=== PATIENT | male | born 1990 | race Caucasian/White ===

== ENCOUNTER → 2020-04-24 14:00 | Outpatient (BNVA) | payer OTHER, SELFPAY | PROVIDERS: Visit Provider Physician Assistant Medical | DX: S39.012A Strain of muscle, fascia and tendon of lower back, initial encounter (principal); X50.1XXA Overexertion from prolonged static or awkward postures, initial encounter; M54.16 Radiculopathy, lumbar region | CPT/HCPCS: 99202 ==

== ENCOUNTER → 2020-04-28 10:24 | Outpatient (BNVA) | payer OTHER, SELFPAY | PROVIDERS: Visit Provider Physician Assistant Medical | DX: S39.012A Strain of muscle, fascia and tendon of lower back, initial encounter (principal); X50.1XXA Overexertion from prolonged static or awkward postures, initial encounter; M54.16 Radiculopathy, lumbar region | CPT/HCPCS: 99213 ==

== ENCOUNTER 2022-03-07 09:38 | Emergency (ER) | payer OTHER, SELFPAY ==
--- NOTE | ~2022-03-07 | XR_ITS ---
EXAMINATION: XR SHOULDER, RIGHT CLINICAL INFORMATION: Recent dislocation. COMPARISON: 07/10/2015 right shoulder radiographs. TECHNIQUE: Three views of the right shoulder. FINDINGS: The bones and soft tissues are normal. No fracture. Glenohumeral and acromioclavicular alignment is anatomic with normal joint space. No abnormal soft tissue calcifications. XR/XR shoulder RT min 2V IMPRESSION: Unremarkable right shoulder. No significant interval change.
[2022-03-07 10:29] VITALS: BP 115/78; PULSE 74; RESP 16; TEMP 36.6; O2SAT 99; BMI 25.0
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
== END 2022-03-07 12:25 | disposition home or self-care (01) ==
PROVIDERS: Emergency Provider Emergency Medicine; PCP Internal Medicine
DX: S43.401A Unspecified sprain of right shoulder joint, initial encounter (principal); X50.1XXA Overexertion from prolonged static or awkward postures, initial encounter; Y93.9 Activity, unspecified; Y92.9 Unspecified place or not applicable; Y99.9 Unspecified external cause status
CPT/HCPCS: 73030; 99282; 99283

== ENCOUNTER 2022-03-31 13:02 | Outpatient (REF) | payer OTHER, SELFPAY ==
--- NOTE | ~2022-03-31 | FL_ITS ---
EXAMINATION: XR ARTHROGRAM SHOULDER, RIGHT CLINICAL INFORMATION: Instability. Pre-MRI. COMPARISON: Right shoulder x-ray 03/07/2022. TECHNIQUE: Procedure and risks and benefits including bleeding, and infection were discussed with the patient and informed consent was obtained. The right shoulder was prepped and draped in the usual sterile fashion. The skin and soft tissues were anesthetized with 1% lidocaine plain. Using fluoroscopic guidance and a 22-gauge spinal needle, access to the shoulder joint was obtained, 1 to 2 mL of Omnipaque 300 was injected fluoroscopically confirming adequate placement in the joint space. Subsequently, a mixture of dilute gadolinium and saline was injected for MRI. FINDINGS: Images demonstrate adequate needle placement in the joint space. FLUOROSCOPY TIME: 0.2 minutes. DOSE AREA PRODUCT: 0.5 gaxiola per centimeter squared. One saved fluoroscopic image. FL/FL arthrogram shoulder RT IMPRESSION: Right shoulder pre-MRI arthrogram.
--- NOTE | ~2022-03-31 | MR_ITS ---
EXAMINATION: MR SHOULDER WITH CONTRAST, RIGHT CLINICAL INFORMATION: Right shoulder pain. Involuntary motion. Rule out labral tear. COMPARISON: Radiographs dated 03/07/2022. TECHNIQUE: MRI of the shoulder was performed following the intra-articular administration of a dilute gadolinium-containing solution (arthrogram) on a high-field scanner. Examination is somewhat limited by motion artifact. FINDINGS: ROTATOR CUFF: Minimal supraspinatus tendinosis. No rotator cuff tears. No muscle atrophy or fatty infiltration. BICEPS: Normal. CORACOACROMIAL ARCH: The undersurface of the acromion is curved with no subacromial spur. Mild acromioclavicular osteoarthritis. Abnormal morphology of the distal clavicle likely corresponds to chronic changes of an old healed fracture. LABRUM/CAPSULE: A tear of the glenoid labrum propagates from the anterosuperior 1 o'clock position through the anteroinferior 5 o'clock position and is associated with a Bankart fracture in this region. The anterior band of the inferior glenohumeral ligament is partially torn at the glenoid attachment. The middle glenohumeral ligament is markedly edematous and irregular, likely torn. Sprains are suspected at the coracohumeral and superior glenohumeral ligaments. GLENOHUMERAL JOINT/MARROW: There is a Bankart fracture at the anterior margin of the glenoid measuring 2.5 cm craniocaudal and 0.7 cm AP with minimal depression of the Bankart fragment (2 mm). Chondral fissuring is noted along the fracture line. Surrounding bone and soft tissues are edematous. There is a mild Hill-Sachs impaction deformity at the humeral head posteriorly over an area measuring 2.5 x 1.5 cm (craniocaudal by transverse) with a depth of depression of 3 mm and underlying marrow edema. MR/MR shoulder RT w con IMPRESSION: 1. Minimally displaced Bankart fracture at the anterior glenoid rim with surrounding edema and an associated tear of the anterior labrum from the 1 o'clock position through the 5 o'clock position. 2. Shallow, acute Hill-Sachs impaction deformity with a depth of 3 mm. 3. Partial tear of the anterior band of the inferior glenohumeral ligament at the glenoid attachment. Tear of the middle glenohumeral ligament. Sprains of the superior glenohumeral ligament and coracohumeral ligament.
== END 2022-03-31 13:03 | disposition home or self-care (01) ==
LOC: HO.XRAY 13:02
PROVIDERS: Visit Provider Physician Assistant
DX: M25.311 Other instability, right shoulder (principal)
CPT/HCPCS: 23350; 73040; 73222

== ENCOUNTER 2022-04-07 07:25 | Day surgery (SDC) | payer OTHER, SELFPAY ==
[2022-04-02 09:47] VITALS: BMI 25.0
--- NOTE | 2022-04-06 09:05 | HO.ANESPROP2 ---
Documented by User: Yvette Wallace NP 04/06/22 09:05 HPI - Anesthesia Eval Consult details Narrative: 31yo M for Right Shoulder Arthroscopy with capsular plication,poss bankhart PMFSH Active Problems Active Problems: All Active Problems (Updated 03/22/22 @ 10:08 by Selma Dial PA-C) Instability of right shoulder joint (Acute) Past Medical History Medical History (Updated 03/22/22 @ 10:08 by Selma Dial PA-C) History of HPV infection Hx of strain of rotator cuff Family History Family History Other No significant family history Surgical History Surgical History (Updated 04/07/22 @ 07:49 by Nanda Schmidt) History of surgery Hx of shoulder surgery Social History Social History (Updated 03/22/22 @ 09:46 by DAIN Reyes) Alcohol intake: current Alcohol intake frequency: a few times a month Patient Tobacco Use Status: Former Tobacco user Quit Date: 2021 Tobacco use type: Cigarette Cigarettes Per Day: 10 Years Smoked: 10 Current occupational status: employed 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 Meds Allergies Allergy/AdvReac Type Severity Reaction Status Date / Time No Known Allergies Allergy Verified 04/07/22 07:47 [No Known Allergies*] Exam Exam Date and Time: April 06, [id number] Height,Weight and Vital Signs: Height 6 ft 1 in Weight 86.183 kg Assessment and Plan Assessment Anesthesia Assessment: Chart Reviewed Documented by User: Leoncio Stephens MD 04/07/22 16:54 PMFSH Past Medical History Medical History (Updated 03/22/22 @ 10:08 by Selma Dial PA-C) History of HPV infection Hx of strain of rotator cuff Family History Family History Other No significant family history Family history of problems with anesthesia: No Surgical History Surgical History (Updated 04/07/22 @ 07:49 by Nanda Schmidt) History of surgery Hx of shoulder surgery History of Problems with Anesthesia: No Social History Social History (Updated 03/22/22 @ 09:46 by DAIN Reyes) Alcohol intake: current Alcohol intake frequency: a few times a month Patient Tobacco Use Status: Former Tobacco user Quit Date: 2021 Tobacco use type: Cigarette Cigarettes Per Day: 10 Years Smoked: 10 Current occupational status: employed 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 Meds Allergies Allergy/AdvReac Type Severity Reaction Status Date / Time No Known Allergies Allergy Verified 04/07/22 07:47 [No Known Allergies*] Exam Airway Mallampati Class: II TM Dist: >3cm Neck ROM: Full Loose/Missing/Broken Teeth: Yes ([place] , fillings ) Heart: S1,S2 Lungs: b/l breath sounds Assessment and Plan Assessment Anesthesia Assessment: Anesthesia Plan Discussed Final Anesthetic Review Family History of Problems with Anesthesia: No History of Problems with Anesthesia: No NPO: Yes ASA Class: II Final Preanesthetic Review: Meds/Allgs Chart Reviewed, Consent Obtained/Reviewed and Anes Risks/Benef Reviewed Patient Risk: Intermediate Procedure Risk: Intermediate Anesthetic Plan Anesthetic Plan: GA and Regional Block Disposition: Standard PACU
[2022-04-07] VITALS (8 sets, daily range): BP systolic 113–130; BP diastolic 63–77; PULSE 50–74; RESP 11–16; TEMP 36.2–36.4; O2SAT 95–100; BMI 21.1
[2022-04-07] MEDS: Lactated Ringers 1,000 ML 100 ML IVCONT (08:13)
--- NOTE | 2022-04-07 09:35 | MHC.SHP ---
Pre-Procedural Eval Section A Date of Service: 04/07/22 The patient is an INPATIENT: No Changes since office visit: Yes Patient answered all questions; No Cold of Flu in the past 2 weeks, No New Medical Problems and No Changes in Medication The History & Physical has been completed within 30 days and I have reviewed it.: Yes Section B Chief Complaint: Other instability, right shoulder Allergies: Allergies Allergy/AdvReac Type Severity Reaction Status Date / Time No Known Allergies Allergy Verified 04/07/22 07:47 [No Known Allergies*] Plan I have reviewed the history and physical and performed a pertinent physical examination on my patient. No changes have occurred unless specified.
--- NOTE | 2022-04-07 11:52 | PM.OP ---
Brief Operative Note Date of Service: 04/07/22 Pre-op diagnosis: right shoulder instability Post-op diagnosis: same Procedure: Right shoulder capsular plication with bankhart repair Implants: Carlton and nephew micro-raptor x4 Surgeon: Fish Lynn MD Anesthesia: GETA and local Was an Communications Representative used for this Procedure?: Yes Communications Representative: Adelina Flores Estimated blood loss (mL): 1 IV fluids (mL): 1,000 Pathology: none sent Condition: stable Disposition: PACU
--- NOTE | 2022-04-07 11:56 | P.OP_ITS ---
Operative Note Operative Note Date of Service: 04/07/22 Narrative: Date of Service: 04/07/22 Pre-op diagnosis: right shoulder instability Post-op diagnosis: same Procedure: Right shoulder capsular plication with bankhart repair Implants: Carlton and nephew micro-raptor x4 Surgeon: Fish Lynn MD Anesthesia: GETA and local Was an Analytical Data Miner used for this Procedure?: Yes Analytical Data Miner: Adelina Flores Estimated blood loss (mL): 1 IV fluids (mL): 1,000 Pathology: none sent Condition: stable Disposition: PACU Procedure in detail: Patient was brought to the operating room and placed the the beach chair position. All bony prominences were well padded and the limb was prepped and draped in standard sterile fashion. A time out was called to identify proper site, proper procedure and proper surgeon. IV antibiotics per weight were administered. I began by making a posterolateral stab incision with a 15 blade. A blunt trochar was placed into the glenohumeral joint and I insufflated the joint with saline and a 30 degree arthroscope was placed. I established an outside- in anterior portal just distal to the biceps tendon. I then began my inspection of the glenohumeral joint. There was a moderate chronic bony bankhat that was healed and with a large stepoff. There was loss of approximately 10-15% of the anterior glenoid. This was not repairable and was chronic. There was a + drive-through sign and cartilage changes of the pratibha-inferior glenoid. There was evidence of prior labral/bankhart repair. I established a second anterioinferior portal and debrided the prior suture and diminutive anterior labral and capsular tissue.I debrided the labrum and removed the prior suture. I then debrided the anterior glenoid neck. Using a Acupass I was able to pass 2 sutures through the capsular tissue at the 5-6 0:clock position and plicate this to the labrum at approximately 5 0:clock. There was no remaining labrum but so I was able to create a bumper of soft tissue at the anterior glenoid using the Acupass. 3 additional suture anchors between 3 and 5 0:clock. I did have an excellent bumper and there was no longer a drive through sign. The subscapularis was intact and there was no under-surface RTC tearing. There was mild fraying of the biceps with associated mild degenerative tearing of the labrum superiorly. I debrided this with the cautery wand. I was satisfied with the plication and the labral repair. There was a shallow Hill-sachs. I then removed all instrumentation and took my final pictures. Portals were closed with nylon. Patient was placed in an abduction sling, extubated and brought to the recovery room in stable condition. There were no known complications.
== END 2022-04-07 14:25 | disposition home or self-care (01) ==
PROVIDERS: PCP Internal Medicine; Visit Provider Orthopaedic Surgery
PROC: (CPT 29805; principal; 2022-04-07 09:40)
DX: M25.311 Other instability, right shoulder (principal); Z87.828 Personal history of other (healed) physical injury and trauma
CPT/HCPCS: 29806; J0171; J0461; J0690; J1100; J1170; J2250; J2405; J2795; J3010

== ENCOUNTER 2022-07-08 10:00 | Outpatient (RCR) | payer OTHER, SELFPAY ==
--- NOTE | 2022-08-30 09:44 | MHC.PT.DC ---
[facility] [place] Office [place] [facility] [place] [facility] [address] Tangela Talbot [address] [phone] F: [phone] F: [phone] F: [phone] F: [phone] Physical Therapy Discharge Report Diagnosis: S/P CAPSULAR PLICATION AND BANKART REPAIR Date of Surgery: 04/07/22 Date of Evaluation: 04/14/22 Date of Discharge: 07/31/22 Treatments to Date: 21 Cancellations to Date: 0 No Shows to Date: 0 Discharge Status: Discharge Summary: Sasha had been progressing well in PT. Shoulder ROM: flexion 165, IR to T12, ER 70. Strength was WNLs. He did not schedule follow up after last attended visit. He had been returning to work. As we have not heard from him in over 30 days we will DC his chart at this time. Electronically signed by: Mitzy Baumann PT DPT Please sign and return to therapist. Thank you for your referral.
== END 2022-08-30 09:44 | disposition home or self-care (01) ==
LOC: HO.PT 10:00
PROVIDERS: Visit Provider Orthopaedic Surgery
DX: M25.311 Other instability, right shoulder (principal)
CPT/HCPCS: 97110; 97140; 97161; 97530

== ENCOUNTER → 2022-07-12 14:46 | Outpatient (BNVA) | payer OTHER, SELFPAY | PROVIDERS: PCP Internal Medicine; Visit Provider Physician Assistant | DX: Z13.89 Encounter for screening for other disorder (principal) ==

== ENCOUNTER 2023-04-14 15:07 | Outpatient (AMB) | payer OTHER, SELFPAY ==
[2023-04-14 15:10] VITALS: BP 122/78; PULSE 78; TEMP 36.6; O2SAT 98
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
== END 2023-04-14 16:12 | disposition home or self-care (01) ==
PROVIDERS: PCP Internal Medicine; Visit Provider Physician Assistant
DX: S99.191A Other physeal fracture of right metatarsal, initial encounter for closed fracture (principal)
CPT/HCPCS: 99214

== ENCOUNTER 2023-04-14 15:28 | Outpatient (REF) | payer OTHER, SELFPAY ==
--- NOTE | ~2023-04-14 | XR_ITS ---
EXAMINATION: Right foot. Right hand. CLINICAL INDICATIONS: Pain. TECHNIQUE: 3 views right hand and 3 views right foot. FINDINGS: RIGHT HAND: There is no visible acute fracture, dislocation or subluxation seen. The joint spaces are maintained normal. No bony erosive changes. The soft tissues are normal. RIGHT FOOT: There is a nondisplaced fracture base of fifth metatarsal. There is associated mild soft tissue swelling. No additional fracture seen. The ankle mortise and subtalar joints are normal. XR/XR foot RT min 3V IMPRESSION: Nondisplaced fracture base of fifth metatarsal. Mild adjacent soft tissue swelling. Unremarkable right hand exam.
--- NOTE | ~2023-04-14 | XR_ITS ---
EXAMINATION: Right foot. Right hand. CLINICAL INDICATIONS: Pain. TECHNIQUE: 3 views right hand and 3 views right foot. FINDINGS: RIGHT HAND: There is no visible acute fracture, dislocation or subluxation seen. The joint spaces are maintained normal. No bony erosive changes. The soft tissues are normal. RIGHT FOOT: There is a nondisplaced fracture base of fifth metatarsal. There is associated mild soft tissue swelling. No additional fracture seen. The ankle mortise and subtalar joints are normal. XR/XR hand RT min 3V IMPRESSION: Nondisplaced fracture base of fifth metatarsal. Mild adjacent soft tissue swelling. Unremarkable right hand exam.
== END 2023-04-14 15:29 | disposition home or self-care (01) ==
LOC: HO.HMGCX 15:28
PROVIDERS: PCP Internal Medicine; Visit Provider Physician Assistant
DX: M79.641 Pain in right hand (principal); M79.671 Pain in right foot
CPT/HCPCS: 73130; 73630

== ENCOUNTER 2023-04-21 09:49 | Outpatient (AMB) | payer OTHER, SELFPAY ==
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
[2023-04-21 10:05] VITALS: BMI 21.1
== END 2023-04-21 11:09 | disposition home or self-care (01) ==
PROVIDERS: PCP Internal Medicine; Visit Provider Physician Assistant
DX: S99.191A Other physeal fracture of right metatarsal, initial encounter for closed fracture (principal)
CPT/HCPCS: 28470; 99213

== ENCOUNTER 2023-04-21 09:49 | Outpatient (REF) | payer OTHER, SELFPAY ==
--- NOTE | ~2023-04-21 | XR_ITS ---
EXAMINATION: XR FOOT, RIGHT CLINICAL INFORMATION: Right foot pain displaced fracture fifth metatarsal bone COMPARISON: 04/14/2023 TECHNIQUE: AP, lateral, and oblique views of the right foot. FINDINGS: Redemonstration of nondisplaced fracture at the base of the fifth metatarsal. Fracture line is still visible, but less conspicuous, suggesting some interval healing. Joint spaces are preserved. XR/XR foot RT min 3V IMPRESSION: Healing nondisplaced fracture of the fifth metatarsal.
== END 2023-04-21 09:50 | disposition home or self-care (01) ==
LOC: HO.HOSX 09:49
PROVIDERS: PCP Internal Medicine; Visit Provider Physician Assistant
DX: S99.191A Other physeal fracture of right metatarsal, initial encounter for closed fracture (principal)
CPT/HCPCS: 28470; 73630

== ENCOUNTER 2023-05-09 09:29 | Outpatient (AMB) | payer OTHER, SELFPAY ==
[2023-05-09 09:46] VITALS: BMI 21.1
--- NOTE | 2023-05-09 09:46 | MHC.OFFVIS ---
Intake Vital Signs 05/09/23 09:46 Height 6 ft 1 in Weight 160 lb BMI 21.1 Intake Visit Reasons: ov- Rt prasad fx w Intake Note: Sasha coreas 32 year old male presents today for a cast change s/p fifth metatarsal bone fracture, DOI 04/14/23. Patient reports his swelling has improved and cast is loose. Allergies No Known Allergies [No Known Allergies*] Allergy (Verified 05/09/23 09:48) HPI HPI Comments History of Present Illness Details Patient returns today for cast change- states the bottom is falling apart. PFSH Medical History History of HPV infection Hx of strain of rotator cuff Surgical History Hx of shoulder surgery History of surgery Family History Other No significant family history Social History Alcohol intake: current Alcohol intake frequency: a few times a month Patient Tobacco Use Status: Former Tobacco user Quit Date: 2021 Tobacco use type: Cigarette Cigarettes Per Day: 10 Years Smoked: 10 Current occupational status: employed Current occupation: water dept/ rt hand Review of Systems Const All systems reviewed & are unremarkable except as noted in HPI and below Physical Exam Vital Signs: BMI result Body Mass Index 21.1 Office Procedures Casting/Splints 66207-[employer] Leg Cast Application Procedure code (CPT) selection complete Assessment & Plan Assessment & Plan (1) Prasad fracture: Code(s): S99.199A - Other physeal fracture of unspecified metatarsal, initial encounter for closed fracture Qualifiers: Encounter type: initial encounter Fracture type: closed Laterality: right Qualified Code(s): S99.191A - Other physeal fracture of right metatarsal, initial encounter for closed fracture Plan: patient was palced in a short leg cast, nwb. He will f/u as planned Coding Level of Care Code Global (40698) Diagnoses Closed fracture of base of fifth metatarsal bone of right foot at metaphyseal-diaphyseal junction, initial encounter S99.191A Encounter type: initial encounter Fracture type: closed Laterality: right CPT Codes Casting - CPT: 84232-[employer] Leg Cast Application ([id number])
== END 2023-05-09 10:28 | disposition home or self-care (01) ==
PROVIDERS: PCP Internal Medicine; Visit Provider Physician Assistant
DX: S99.191A Other physeal fracture of right metatarsal, initial encounter for closed fracture (principal)
CPT/HCPCS: 29405; 99024

== ENCOUNTER → 2023-05-09 09:29 | Outpatient (BNVA) | payer OTHER, SELFPAY | PROVIDERS: PCP Internal Medicine; Visit Provider Physician Assistant | DX: S99.191A Other physeal fracture of right metatarsal, initial encounter for closed fracture (principal); X58.XXXA Exposure to other specified factors, initial encounter; Y93.9 Activity, unspecified; Y92.9 Unspecified place or not applicable; Y99.9 Unspecified external cause status | CPT/HCPCS: 29405 ==

== ENCOUNTER 2023-06-02 12:19 | Outpatient (REF) | payer OTHER, SELFPAY ==
--- NOTE | ~2023-06-02 | XR_ITS ---
EXAMINATION: XR FOOT, RIGHT CLINICAL INFORMATION: Follow-up fifth metatarsal fracture. COMPARISON: Radiograph right foot 04/21/2023. TECHNIQUE: AP, lateral, and oblique views of the right foot. FINDINGS: Again noted nondisplaced fracture of the base of the fifth metatarsal with mild osseous bridging along the medial aspect of the fracture where there is a less distinct fracture line compared to 04/21/2023. No significant callus formation. No interval injuries. No significant soft tissue abnormality. XR/XR foot RT min 3V IMPRESSION: Healing nondisplaced fracture of the base of the fifth metatarsal.
== END 2023-06-02 12:20 | disposition home or self-care (01) ==
LOC: HO.HOSX 12:19
PROVIDERS: Visit Provider Physician Assistant
DX: S99.191D Other physeal fracture of right metatarsal, subsequent encounter for fracture with routine healing (principal)
CPT/HCPCS: 73630

== ENCOUNTER 2023-06-02 14:13 | Outpatient (AMB) | payer OTHER, SELFPAY ==
--- NOTE | 2023-06-02 14:32 | A.OFFVIS_ITS ---
Intake Vital Signs 06/02/23 14:38 Height 6 ft 1 in Weight 160 lb BMI 21.1 Intake Visit Reasons: ov- Rt prasad fx w xrays Intake Note: Sasha coreas 32 year old male presents today for a cast change s/p fifth metatarsal bone fracture, DOI 04/14/23. Cast off and xrays updated. Patient reports he is doing well, denies any pain. States a little discomfort from cast. Allergies No Known Allergies [No Known Allergies*] Allergy (Verified 06/02/23 14:38) HPI ov- Rt prasad fx w xrays HPI Details 32-year-old male who returns to the [facility] today for a follow-up of right prasad fracture, 04/14/23. He states he has no pain but he does c/o mild discomfort from his cast. He is doing well overall. [facility] Medical History History of HPV infection Hx of strain of rotator cuff Surgical History Hx of shoulder surgery History of surgery Family History Other No significant family history Social History Alcohol intake: current Alcohol intake frequency: a few times a month Patient Tobacco Use Status: Former Tobacco user Quit Date: 2021 Tobacco use type: Cigarette Cigarettes Per Day: 10 Years Smoked: 10 Current occupational status: employed Current occupation: water dept/ rt hand Review of Systems Const All systems reviewed & are unremarkable except as noted in HPI and below Physical Exam Vital Signs: BMI result Body Mass Index 21.1 Extrem Other: Right foot: Skin intact. There is mild tenderness at the base of the 5th metatarsal. Sensation intact. EHL intact. No pain along the mediolateral malleolus. Neurovascularly intact. Results Reviewed Results Reviewed: Xrays were obtained in the office today and personally reviewed by me of the right foot show non displaced prasad fracture with interval healing Assessment & Plan Assessment & Plan (1) Prasad fracture: Code(s): S99.199A - Other physeal fracture of unspecified metatarsal, initial encounter for closed fracture Qualifiers: Encounter type: subsequent encounter Fracture type: closed Laterality: right Fracture healing: with routine healing Qualified Code(s): S99.191D - Other physeal fracture of right metatarsal, subsequent encounter for fracture with routine healing Plan I recommend he transitioned to a boot weight bearing as tolerated. I did explain that fracture is not completely healed however we are seeing evidence of healing on x-rays. He chose not to take a new boot from our office today as he does still have one form ED and states that when he gets home, he will put that one on. He will be weight bearing as tolerated and he can remove the boot for hygiene. I would like to see him back in 6 weeks with new x-rays and he will remain out of work till follow-up. Orders: Orders XR foot RT min 3V 06/02/23 S92.351A - Displaced fracture of fifth metatarsal bone, right foot, initial encounter for closed fracture Patient Instructions: Scribed for Selma Dial PA-C, by Evens Abbott medical appointment scheduler, on 06/02/2023 at 2:15 PM EST. I, Selma Dial PA-C, have personally reviewed and agree with the information entered by the scribe. Coding Level of Care Code Global (05718) Diagnoses Closed fracture of base of fifth metatarsal bone of right foot at metaphyseal- diaphyseal junction with routine healing, subsequent encounter S99.191D Encounter type: subsequent encounter Fracture type: closed Laterality: right Fracture healing: with routine healing
[2023-06-02 14:38] VITALS: BMI 21.1
== END 2023-06-02 15:53 | disposition home or self-care (01) ==
PROVIDERS: PCP Internal Medicine; Visit Provider Physician Assistant
DX: S99.191D Other physeal fracture of right metatarsal, subsequent encounter for fracture with routine healing (principal)
CPT/HCPCS: 99024

== ENCOUNTER 2023-06-28 11:42 | Outpatient (AMB) | payer OTHER, SELFPAY ==
[2023-06-28 11:47] VITALS: BP 118/70; PULSE 83; TEMP 36.4; O2SAT 97; BMI 21.1
--- NOTE | 2023-06-28 11:47 | MHC.OFFWIV ---
Intake Vital Signs 06/28/23 11:47 Height 6 ft 1 in Weight 160 lb BMI 21.1 BP 118/70 Blood Pressure Location Rt brachial Position Sitting Pulse 83 Pulse Source Pulse Oximeter Temp 97.6 F Temp Source Temporal Artery Scan Pulse Oximetry (%) 97 Oxygen Delivery Method Room Air Intake Visit Reasons: EP COVID + 06/24 Sore throat [phone] Intake Note: pt is here for c/o sore throat, covid postive tuesday, and girlfriend is strep positive Patient Tobacco Use Status: Former Tobacco user Quit Date: 2021 Allergies No Known Allergies [No Known Allergies*] Allergy (Verified 06/28/23 12:34) Medication List - Last Reconciled 06/28/23 by Ottoniel Carvalho MD No Known Home Meds Do you need a note to return to daycare/school/sports/work: Yes HPI EP COVID + 06/24 Sore throat [phone] HPI Details 32-year-old male presents to the office for a sick visit. Patient tested positive for COVID on Tuesday last. He is feeling better but developed a sore throat yesterday. His girlfriend was diagnosed with strep and he would like to be checked for the same. On a different note, patient has history of tinea versicolor and takes Selenium sulfide. He would like a script for the same. [facility] Medical History History of HPV infection Hx of strain of rotator cuff Surgical History Hx of shoulder surgery History of surgery Family History Other No significant family history Social History Alcohol intake: current Alcohol intake frequency: a few times a month Patient Tobacco Use Status: Former Tobacco user Quit Date: 2021 Tobacco use type: Cigarette Cigarettes Per Day: 10 Years Smoked: 10 Current occupational status: employed Current occupation: water dept/ rt hand Physical Exam Vital Signs: Last Vital Signs Temp 97.6 F 06/28/23 11:47 Pulse 83 06/28/23 11:47 BP 118/70 06/28/23 11:47 Pulse Ox 97 06/28/23 11:47 Oxygen Delivery Method Room Air 06/28/23 11:47 BMI result Body Mass Index 21.1 Const General: cooperative and healthy appearing Nutritional Appearance: well nourished Orientation/consciousness: patient oriented x3 Limitations: no limitations HEENT Head: Yes normal to inspection Eyes General: appearance normal, both eyes and all related structures Neck Neck: Yes normal visual inspection Chest Chest palpation & inspection: normal palpation of entire chest wall Resp Effort & Inspection: normal respiratory effort Skin Other: Macular hypopigmented areas over the neck consistent with tinea versicolor. Neuro General: patient oriented x3 Results AMB Rapid Strep AMB Rapid Strep Negative Last Edit by Krishan Parisi CMA on 06/28/23 12:03 Results Reviewed Results Reviewed: Laboratory Last Values Strep Scn Rapid Clinic Negative 06/28/23 12:03 Assessment & Plan Assessment & Plan (1) Upper respiratory tract infection: Code(s): J06.9 - Acute upper respiratory infection, unspecified Plan: No antibiotics needed. Strep test was negative. Reassurance. (2) Rash: Code(s): R21 - Rash and other nonspecific skin eruption Plan: Prescription of selenium sulfide called in. Orders: Orders AMB Rapid Strep Screen Today Z13.9 - Encounter for screening, unspecified Coding Level of Care Code Est Pt Level 3 (81021) Diagnoses Upper respiratory tract infection J06.9 Rash R21
== END 2023-06-28 12:55 | disposition home or self-care (01) ==
PROVIDERS: PCP Internal Medicine; Visit Provider Internal Medicine
DX: J06.9 Acute upper respiratory infection, unspecified (principal); R21 Rash and other nonspecific skin eruption; J02.9 Acute pharyngitis, unspecified
CPT/HCPCS: 87880; 99213

== ENCOUNTER 2023-07-14 12:47 | Outpatient (REF) | payer OTHER, SELFPAY ==
--- NOTE | ~2023-07-14 | XR_ITS ---
EXAMINATION: XR FOOT, RIGHT CLINICAL INFORMATION: Displaced fracture of 5th metatarsal. COMPARISON: 06/02/2023 TECHNIQUE: AP, lateral, and oblique views of the right foot. FINDINGS: Again seen is the fracture at the base of the 5th metatarsal. Compared to 06/02/2023 study no significant interval change is seen with no evidence of increased fracture fragment healing. No new fractures are seen. XR/XR foot RT min 3V IMPRESSION: Unchanged appearance of fracture at the base of the 5th metatarsal.
== END 2023-07-14 12:48 | disposition home or self-care (01) ==
LOC: HO.HOSX 12:47
PROVIDERS: Visit Provider Physician Assistant
DX: S92.351D Displaced fracture of fifth metatarsal bone, right foot, subsequent encounter for fracture with routine healing (principal); S99.191D Other physeal fracture of right metatarsal, subsequent encounter for fracture with routine healing; X58.XXXD Exposure to other specified factors, subsequent encounter
CPT/HCPCS: 73630

== ENCOUNTER 2023-07-14 14:48 | Outpatient (AMB) | payer OTHER, SELFPAY ==
--- NOTE | 2023-07-14 15:03 | A.OFFVIS_ITS ---
Intake Vital Signs 07/14/23 15:08 Height 6 ft 1 in Weight 160 lb BMI 21.1 Intake Visit Reasons: OV-Rt 5th metatarsal fx w xrays Intake Note: Sasha coreas 32 year old male presents today for a cast change s/p fifth metatarsal bone fracture, DOI 04/14/23. Xrays updated while in office. Patient reports he is doing well, states a little discomfort by the end of the day. Allergies No Known Allergies [No Known Allergies*] Allergy (Verified 07/14/23 15:09) HPI OV-Rt 5th metatarsal fx w xrays HPI Details 32-year-old male who returns to the [facility] today for a follow-up of r ight 5th metatarsal fracture, 04/14/23. He states he experiences mild discomfort in his right small toes by the end of the day but is doing well overall. He has no other concerns today. [facility] Medical History History of HPV infection Hx of strain of rotator cuff Surgical History Hx of shoulder surgery History of surgery Family History Other No significant family history Social History Alcohol intake: current Alcohol intake frequency: a few times a month Patient Tobacco Use Status: Former Tobacco user Quit Date: 2021 Tobacco use type: Cigarette Cigarettes Per Day: 10 Years Smoked: 10 Current occupational status: employed Current occupation: water dept/ rt hand Review of Systems Const All systems reviewed & are unremarkable except as noted in HPI and below Physical Exam Vital Signs: BMI result Body Mass Index 21.1 Extrem Other: Right foot Normal to inspection. No swelling or ecchymosis. No tenderness over the base of the metatarsal. Full ROM without pain. He has mild weakness with inversion and eversion against resistance. Results Reviewed Results Reviewed: Xrays were obtained in the office today and personally reviewed by me of the right foot show non displaced prasad fracture with interval healing Assessment & Plan Assessment & Plan (1) Prasad fracture: Code(s): S99.199A - Other physeal fracture of unspecified metatarsal, initial encounter for closed fracture Qualifiers: Encounter type: subsequent encounter Fracture healing: with routine healing Fracture type: closed Laterality: right Qualified Code(s): S99.191D - Other physeal fracture of right metatarsal, subsequent encounter for fracture with routine healing Plan He will transition to a regular street shoe. He will begin a course of physical therapy to work on strengthening and proprioceptive training. He will return to work on July 19 and gradually increase activities as tolerated using caution with any type of impact activities. He will follow-up as needed unless symptoms arise. Orders: Orders XR foot RT min 3V Today S92.351A - Displaced fracture of fifth metatarsal bone, right foot, initial encounter for closed fracture PT Evaluation and Treatment Today S99.199A - Other physeal fracture of unspecified metatarsal, initial encounter for closed fracture Patient Instructions: Scribed for Selma Dial PA-C, by Evens Abbott medical aide, on 07/14/2023 at 3:00 PM EST. I, Selma Dial PA-C, have personally reviewed and agree with the information entered by the scribe. Coding Level of Care Code Global (01999) Diagnoses Closed fracture of base of fifth metatarsal bone of right foot at metaphyseal- diaphyseal junction with routine healing, subsequent encounter S99.191D Encounter type: subsequent encounter Fracture healing: with routine healing Fracture type: closed Laterality: right
[2023-07-14 15:08] VITALS: BMI 21.1
== END 2023-07-14 15:31 | disposition home or self-care (01) ==
PROVIDERS: PCP Internal Medicine; Visit Provider Physician Assistant
DX: S99.191D Other physeal fracture of right metatarsal, subsequent encounter for fracture with routine healing (principal)
CPT/HCPCS: 99024

== ENCOUNTER 2023-08-02 15:56 | Outpatient (RCR) | payer OTHER, SELFPAY ==
--- NOTE | 2023-08-02 18:11 | MHC.PT.EP ---
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 Patient impairments include limited ROM, weakness, impaired balance/proprioception. Patient current functional limitations are getting out of bed, walking barefoot, walking outdoors. Patient will benefit from skilled PT to address aforementioned impairments and functional limitations to meet established goals. Frequency and Duration: The patient will be seen 1x/week for 4 weeks Short Term Goals: 2 weeks Patient demonstrates consistency and independence with HEP to self manage symptoms. File Clerk Data Entry Goals: 4 weeks Patient presents with increased R ankle DF 0 degrees to restore normalized gait pattern. Patient presents with increased R ankle inv/ev strength 5/5 to be able to ambulate on uneven surfaces with stability. Treatment Plan: Modalities to reduce pain, spasms and effusion. Manual therapy to restore motion and function. Therapeutic exercise to improve strength and flexibility. Neuromuscular re-education for posture and balance. Therapeutic activities to return to functional activities of daily living. Electronically signed by: Yonathan House, PT, DPT Please sign and return to therapist. Thank you for your referral.
--- NOTE | 2023-10-03 10:56 | MHC.PT.DC ---
[facility] [employer] Office [place] Office [place] Office [address] Tangela Tal[address] [phone] F: [phone] F: [phone] F: [phone] F: [phone] Physical Therapy Discharge Report Diagnosis: Fifth metatarsal closed fx (DOI: 04/14/23) Date of Surgery: Date of Evaluation: 08/02/23 Date of Discharge: 10/03/23 Treatments to Date: 1 Cancellations to Date: 1 No Shows to Date: Discharge Status: Visit Non-compliance Discharge Summary: Sasha was only see for the initial PT evaluation and did not show to any FUP sessions. I am unable to determine effectiveness of PT interventions on patient condition due to this. He is discharged from PT at this time. Electronically signed by: Yonathan House, PT, DPT Please sign and return to therapist. Thank you for your referral.
== END 2023-10-03 10:56 | disposition home or self-care (01) ==
LOC: HO.PT 15:56
PROVIDERS: PCP Internal Medicine; Visit Provider Physician Assistant
DX: S99.191D Other physeal fracture of right metatarsal, subsequent encounter for fracture with routine healing (principal)
CPT/HCPCS: 97110; 97112; 97161

== ENCOUNTER 2024-11-28 15:40 | Outpatient (AMB) | payer OTHER, SELFPAY ==
[2024-11-28 15:47] VITALS: BP 122/78; PULSE 78; TEMP 36.6; O2SAT 97
--- NOTE | 2024-11-28 15:47 | AM.OFFWIN_ITS ---
Intake Vital Signs 11/28/24 15:47 Height 6 ft 1 in BMI Reason not done Patient refused/unable BP 122/78 Blood Pressure Location Lt brachial Position Sitting Pulse 78 Pulse Source Pulse Oximeter Temp 97.9 F Temp Source Oral Pulse Oximetry (%) 97 Intake Visit Reasons: EP flu like symptoms all week, lump on neck Patient Tobacco Use Status: Former Tobacco user Allergies No Known Allergies [No Known Allergies*] Allergy (Verified 11/28/24 15:48) Do you need a note to return to daycare/school/sports/work: Yes HPI HPI Comments History of Present Illness Details 34 yo male with a history of Schmidt adam ure who presents today for cold symptoms. He states that he has been having a cold for the past week and a half. He states that he started with body aches, chills, LANGLEY, sore throat and a cough. He states that he had a lot of phlegm. He states that he has been eating and drinking. He states that he has been feeling better. He noticed 2 lumps on the left later neck and it freaked him out . He has some ear pain and a sore throat. He has not taken anything for the symptoms. He is a smoker. He was with a friend last week who had the flu. He also wants a medication refill. [facility] Medical History History of HPV infection Hx of strain of rotator cuff Surgical History Hx of shoulder surgery History of surgery Family History Other No significant family history Social History Alcohol intake: current Alcohol intake frequency: a few times a month Patient Tobacco Use Status: Former Tobacco user Tobacco use type: Cigarette Cigarettes Per Day: 10 Years Smoked: 10 Current occupational status: employed Current occupation: water dept/ rt hand Review of Systems Const Denies headache(s) ENT Denies headache(s), Reports nasal congestion, Reports nasal discharge, Denies sinus pain, Denies sinus pressure and Reports sore throat Card Denies chest pain and Denies dyspnea Resp Reports chest congestion, Reports cough, Reports excessive phlegm production, Denies dyspnea and Denies wheezing GI Denies abdominal pain, Denies diarrhea and Denies vomiting Musc Reports myalgias Neuro Denies headache(s) Jose J/Lymph Reports lymphadenopathy Aller/Immun Denies seasonal rhinorrhea and Denies wheezing Physical Exam Vital Signs: Last Vital Signs Temp 97.9 F 11/28/24 15:47 Pulse 78 11/28/24 15:47 BP 122/78 11/28/24 15:47 Pulse Ox 97 11/28/24 15:47 Const General: no acute distress, well developed, alert and awake HEENT Head: Yes normocephalic Ears: TM's normal bilaterally General nose exam: Normal nares present and No nasal discharge present Face and sinus: Yes sinuses nontender Throat: Yes posterior oropharynx normal, Yes tonsils normal and Yes uvula midline Neck Neck: Yes lymphadenopathy (left posterior lymph nodes noted ) and Yes torticollis Resp Auscultation: clear to auscultation bilaterally Cardio Rate: regular rate Rhythm: regular rhythm Heart sounds: S1 normal heart sound present and S2 normal heart sound present Assessment & Plan Assessment & Plan (1) Flu-like symptoms: Code(s): R68.89 - Other general symptoms and signs Plan: Most likely URI vs flu vs covid vs viral illness plan- -rest and drink lots of fluids -Tylenol or Motrin as needed -diet as tolerated -z-chinedu as directed -will refill his medication -f/u with PCP Medications: New azithromycin For 250 mg dose pack: take 500 mg today (day 1), then 250 mg for 4 days (days 2-5) PO 6 tabs 0RF Refilled selenium sulfide 2.5% 1 appl topical 2XW 2 weeks 120 mL 1RF Coding Level of Care Code Est Pt Level 3 (36027) Diagnoses Flu-like symptoms R68.89
== END 2024-11-28 16:09 | disposition home or self-care (01) ==
PROVIDERS: PCP Internal Medicine; Visit Provider Physician Assistant Medical
DX: R68.89 Other general symptoms and signs (principal)

== ENCOUNTER → 2024-11-28 15:40 | Outpatient (BNVA) | payer OTHER, SELFPAY | PROVIDERS: PCP Internal Medicine; Visit Provider Physician Assistant Medical | DX: Z13.89 Encounter for screening for other disorder (principal) ==

== ENCOUNTER 2025-04-11 08:12 | Outpatient (REF) | payer OTHER, SELFPAY ==
--- NOTE | ~2025-04-11 | XR_ITS ---
EXAMINATION: XR ANKLE 3 OR MORE VIEWS RIGHT HISTORY: M25.571 - Pain in right ankle and joints of right foot COMPARISON: There are no prior studies available for comparison. FINDINGS: Three views of the right ankle are submitted. Osseous mineralization is normal. There is a minimally displaced fracture of the medial malleolus. There is also an obliquely oriented nondisplaced fracture through the talus, best seen on the oblique view. There is no dislocation. The joint spaces are preserved. There is diffuse soft tissue swelling. XR/XR ankle RT min 3V IMPRESSION: 1. Minimally displaced fracture of the medial malleolus. 2. Nondisplaced oblique fracture of the talus. Electronically signed by: Joe Dixon MD 04/11/2025 02:41 PM EDT
== END 2025-04-11 08:13 | disposition home or self-care (01) ==
LOC: HO.HOSX 08:12
PROVIDERS: Visit Provider Physician Assistant
DX: S92.124A Nondisplaced fracture of body of right talus, initial encounter for closed fracture (principal); V86.56XA Driver of dirt bike or motor/cross bike injured in nontraffic accident, initial encounter
CPT/HCPCS: 27760; 73610

== ENCOUNTER 2025-04-11 13:56 | Outpatient (AMB) | payer OTHER, SELFPAY ==
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
== END 2025-04-11 15:27 | disposition home or self-care (01) ==
LOC: HO.HOS 13:57
PROVIDERS: PCP Internal Medicine; Visit Provider Physician Assistant
DX: S82.891A Other fracture of right lower leg, initial encounter for closed fracture (principal); S92.101A Unspecified fracture of right talus, initial encounter for closed fracture
CPT/HCPCS: 27760; 99214

== ENCOUNTER → 2025-04-11 14:01 | Outpatient (BNV) | payer OTHER, SELFPAY | PROVIDERS: Visit Provider Radiology Diagnostic Radiology | DX: S82.51XA Displaced fracture of medial malleolus of right tibia, initial encounter for closed fracture (principal); S92.124A Nondisplaced fracture of body of right talus, initial encounter for closed fracture | CPT/HCPCS: 73610 ==

== ENCOUNTER 2025-04-13 06:58 | Outpatient (REF) | payer OTHER, SELFPAY ==
--- NOTE | ~2025-04-13 | CT_ITS ---
CLINICAL HISTORY: S82.891A - Other fracture of right lower leg, initial encounter for clos... EXAM: CT Ankle, right, without IV contrast. CLINICAL HISTORY: S82.891A - Other fracture of right lower leg, initial encounter for clos... TECHNIQUE: Axial computed tomography images of the right ankle without intravenous contrast. CONTRAST: without COMPARISON: None provided. FINDINGS: Comminuted, intra-articular fractures involving the distal tibia, fibula and talus are noted. The calcaneus is intact. The navicular bone is intact. Surrounding soft tissue edema present. Impression: Comminuted intra-articular fractures of the distal tibia, fibula and talus. This document has been electronically signed by: Shayan Perez MD on 04/13/2025 10:53:50
--- NOTE | ~2025-04-13 | CT_ITS ---
CLINICAL HISTORY: S93.601A - Unspecified sprain of right foot, initial encounter --- Additional Notes or Special Instructions: surgical planning EXAM: CT Foot, right, without IV contrast. CLINICAL HISTORY: S93.601A - Unspecified sprain of right foot, initial encounter --- Additional Notes or Special Instructions: surgical planning TECHNIQUE: Axial computed tomography images of the right foot without intravenous contrast. CONTRAST: without COMPARISON: None provided. FINDINGS: Comminuted fractures involving the distal tibia, fibula and talus are noted. The calcaneus is intact. The navicular bone is intact. Surrounding soft tissue edema present. Impression: Comminuted distal tibial, fibular and talar fractures. This document has been electronically signed by: Shayan Perez MD on 04/13/2025 10:53:04
--- OUTSIDE RECORDS SUMMARY | 2025-04-13 07:00 | XMS_ITS | Clinical Summary ---
Author Organization [facility] Address [address] [place] [phone] Phone Care Team Providers Care Test Engineer Name Role Phone Pcp, Unknown Primary Care Provider Unavailabl e Allergies No known active allergies Medications No known medications Encounters Date Type Department Care Team Description 01/23/2025 9:40 AM EDT Ancillary Procedure [facility], [facility] [address] [place] [address] Florian Uriostegui PA-C 01/23/2025 8:45 AM EDT - 01/23/2025 10:23 AM EDT Emergency [facility] [address] [place] [address] Discharge Disposition: Home or Self Care from [...] (01/23/2025 9:10 AM EDT) COLOR Yellow Yellow [facility] CLARITY Clear [facility] GLUCOSE Negative Negative [facility] BILI Negative Negative [facility] KETONES Negative Negative [facility] SPECIFIC GRAVITY 1.025 1.005 - 1.030 [facility] BLOOD Negative Negative [facility] PH 6.0 5.0 - 8.0 [facility] Protein-UA Negative Negative [facility] NITRITE Negative Negative [facility] Leukocyte esterase, ur Negative Negative [facility] Urine (Urine) 01/23/2025 9:1 0 AM EDT 01/23/2025 9:32 AM EDT Bobby Kenney MD URINE ORDERABLES Final Res ult Performing Organization Address [facility] Co de Phone Number [address] [address] * LFTs (hepatic panel) (01/23/2025 8:58 AM EDT) ALKALINE PHOSPHATASE 71 39 - 117 U/L [facility] TOTAL BILIRUBIN 0.5 0.0 - 1.2 mg/dL [facility] DIRECT BILIRUBIN 0.1 0.0 - 0.2 mg/dL [facility] Bilirubin (Indirect) NOT CALCULATED 0 - 1.5 mg/dL [facility] AST 23 0 - 37 U/L [facility] ALT 18 0 - 40 U/L [facility] TOTAL PROTEIN 7.2 6.5 - 8.0 g/dL [facility] ALBUMIN 4.5 3.9 - 4.8 g/dL [facility] GLOBULIN 2.7 1 - 4.8 g/dL [facility] A/G Ratio 1.67 1.00 - 4.80 RATIO [facility] Blood 01/23/2025 8:58 AM EDT 01/23/2025 9:09 AM EDT Bobby Kenney MD LAB BLOOD ORDERABLES Final Result Performing Organization Address [facility] Co de Phone Number [address] [address] * CBC and differential (01/23/2025 8:58 AM EDT) WBC 5.05 4.00 - 11.00 K/uL [facility] RBC 5.30 4.50 - 5.90 M/uL [facility] HGB 15.6 13.5 - 17.5 g/dL [facility] HCT 46.3 41.0 - 53.0 % [facility] PLT 240 150 - 450 K/uL [facility] MCV 87.4 80.0 - 100.0 fL [facility] MCH 29.4 27.0 - 31.0 pg [facility] MCHC 33.7 32.0 - 36.0 g/dL [facility] RDW 12.7 11.5 - 14.5 % [facility] MPV 9.1 8.4 - 12.0 fL [facility] NRBC 0.00 0.00 /100 WBCs [facility] ABSOLUTE NRBC 0.00 0.00 K/uL [facility] DIFF METHOD Auto [facility] NEUTS 56.4 48.0 - 76.0 % [facility] LYMPHS 31.7 18.0 - 41.0 % [facility] MONOS 8.1 4.0 - 11.0 % [facility] EOS 2.8 0.0 - 5.0 % [facility] BASOS 0.6 0.0 - 1.5 % [facility] Granulocytes, immature (%) 0.4 0.0 - 0.9 % [facility] ABSOLUTE NEUTS 2.85 1.92 - 7.60 K/uL [facility] ABSOLUTE LYMPHS 1.60 0.72 - 4.10 K/uL [facility] ABSOLUTE MONOS 0.41 0.16 - 1.10 K/uL [facility] ABSOLUTE EOS 0.14 0.00 - 0.50 K/uL [facility] ABSOLUTE BASOS 0.03 0.00 - 0.15 K/uL [facility] Granulocytes, immature 0.02 0.00 - 0.09 K/uL [facility] Blood 01/23/2025 8:58 AM EDT 01/23/2025 9:09 AM EDT us Bobby Kenney MD LAB BLOOD ORDERABLES Final Result [facility] [address] [place] [address] * C-Reactive Protein (01/23/2025 8:58 AM EDT) C REACTIVE PROTEIN <3.0 0.0 - 4.0 mg/L [facility] 01/23/2025 8:58 AM EDT 01/23/2025 9:09 AM EDT us Bobby Kenney MD LAB BLOOD ORDERABLES Final Result Performing Organization Address City/[facility]/ZIP Co de Phone Number [address] [address] * Lipase (01/23/2025 8:58 AM EDT) LIPASE 16 16 - 63 U/L [facility] Blood 01/23/2025 8:58 AM EDT 01/23/2025 9:09 AM EDT Bobby Kenney MD LAB BLOOD ORDERABLES Final Result Performing Organization Address [facility] de Phone Number [address] [address] * (ABNORMAL) Basic metabolic panel (01/23/2025 8:58 AM EDT) SODIUM 139 133 - 146 mmol/L [facility] CHLORIDE 103 96 - 108 mmol/L [facility] POTASSIUM 4.5 3.3 - 5.1 mmol/L [facility] Comment:Specimen slightly he molyzed, result may be falsely elevated. CO2 25 21 - 35 mmol/L [facility] BUN 10 6 - 19 mg/dL [facility] CREATININE 1.00 0.5 - 1.5 mg/dL [facility] GLUCOSE 127(H) 70 - 99 mg/dL [facility] CALCIUM 9.5 8.4 - 10.3 mg/dL [facility] EGFR 101 >59 mL/min/1.7 3m2 [facility] Comment:Estimated glomerular filtration rate calculated using the CKD-EPI refit equation. ANION GAP 16 10 - 20 mmol/L [facility] Blood 01/23/2025 8:58 AM EDT 01/23/2025 9:09 AM EDT Bobby Kenney MD LAB BLOOD ORDERABLES Final Result [address] [id number] from Last 3 Months Insurance [place] [address] [place], [place] [address] [place], [place] [id number] Care Teams Test Engineer Relationship Specialty Start Date End Date Pcp, Unknown PCP - General 01/23/25 Additional Source Comments The information contained in this document represents components of the legal health record. It is not the complete legal health record.[facility]
--- OUTSIDE RECORDS SUMMARY | 2025-04-13 07:01 | XMS_ITS | Clinical Summary ---
Author Organization [facility] Address [address] [place] [address] Care Team Providers Care Conference Organizer Name Role Phone Keily Ocasio MD Primary [...] EDT - 04/07/2025 4:39 PM EDT Emergency [facility] Emergency Department [address] [place] [id number] Renny Sims MD Closed nondisplaced fracture of [...] complete this topic Procedures * Due to [place] state law, this organization might not be [...] Last 3 Months Results * Due to [place] state law, this organization might not be [...] to obtain the completed interpretation. Workstation ID: [id number] Up-to-date CT equipment and radiation dose reduction [...] of the calf tendons.. Resulting Agency Comment [id number] Procedure Note Khalif [place] MD - 04/07/2025 [...] possible to obtain thecompleted interpretation. Workstation ID: [id number] Up-to-date CT equipment and radiation dose reduction [...] to obtain the completed interpretation. Workstation ID: [id number] Impressions 04/07/2025 1:44 PM EDT Acute nondisplaced intra-articular fracture of the medial malleolus. If this radiology report contains a blank impression section, it is an incomplete radiology report. Please contact the interpreting radiologist or applicable radiology division as soon as possible to obtain the completed interpretation. Workstation ID: [id number] Narrative 04/07/2025 1:44 PM EDT COMPARISON: None available. FINDINGS: There is an acute intra-articular fracture at the medial malleolus. The lateral and posterior malleoli appear intact. No dislocation. Joint spaces are preserved. There soft tissue swelling of the ankle. Resulting Agency Comment [id number] Procedure Note Khalif [place] MD - 04/07/2025 [...] possible to obtain thecompleted interpretation. Workstation ID: [id number] us Renny Layer IMG XR PROCEDURES Edited [...] to obtain the completed interpretation. Workstation ID: [id number] Impressions 04/07/2025 1:44 PM EDT Acute nondisplaced intra-articular fracture of the medial malleolus. If this radiology report contains a blank impression section, it is an incomplete radiology report. Please contact the interpreting radiologist or applicable radiology division as soon as possible to obtain the completed interpretation. Workstation ID: [id number] Narrative 04/07/2025 1:44 PM EDT COMPARISON: None available. FINDINGS: There is an acute intra-articular fracture at the medial malleolus. The lateral and posterior malleoli appear intact. No dislocation. Joint spaces are preserved. There soft tissue swelling of the ankle. Resulting Agency Comment [id number] Procedure Note Khalif [place] MD - 04/07/2025 [...] possible to obtain thecompleted interpretation. Workstation ID: [id number] us Renny Layer IMG XR PROCEDURES Edited [...] to obtain the completed interpretation. Workstation ID: [id number] Impressions 04/07/2025 1:44 PM EDT Acute nondisplaced intra-articular fracture of the medial malleolus. If this radiology report contains a blank impression section, it is an incomplete radiology report. Please contact the interpreting radiologist or applicable radiology division as soon as possible to obtain the completed interpretation. Workstation ID: [id number] Narrative 04/07/2025 1:44 PM EDT COMPARISON: None available. FINDINGS: There is an acute intra-articular fracture at the medial malleolus. The lateral and posterior malleoli appear intact. No dislocation. Joint spaces are preserved. There soft tissue swelling of the ankle. Resulting Agency Comment [id number] Procedure Note Khalif [place] MD - 04/07/2025 [...] possible to obtain thecompleted interpretation. Workstation ID: [id number] us Renny Sims MD IMReny XR PROCEDURES [...] to obtain the completed interpretation. Workstation ID: [id number] Narrative 04/07/2025 1:40 PM EDT COMPARISON: None available. FINDINGS: There is no evidence of acute fracture or dislocation. Joint spaces are preserved. There is no abnormal soft tissue swelling identified. Resulting Agency Comment [id number] Procedure Note Khalif [place] MD - 04/07/2025 [...] possible to obtain thecompleted interpretation. Workstation ID: [id number] Renny Sims MD IMG XR PROCEDURES Final Result from Last 3 Months Insurance [employer] Care Teams Conference Organizer Relationship Specialty Start Date End Date Keily Ocasio MD [address] [place] [address] PCP - General Internal Medicine 04/07/25
== END 2025-04-13 06:59 | disposition home or self-care (01) ==
LOC: HO.CT 06:58
PROVIDERS: Visit Provider Physician Assistant
DX: S93.601A Unspecified sprain of right foot, initial encounter (principal); S82.891A Other fracture of right lower leg, initial encounter for closed fracture
CPT/HCPCS: 73700

== ENCOUNTER → 2025-04-13 07:08 | Outpatient (BNV) | payer OTHER, SELFPAY | PROVIDERS: Visit Provider Radiology Vascular & Interventional Radiology | DX: S82.251A Displaced comminuted fracture of shaft of right tibia, initial encounter for closed fracture (principal); S82.451A Displaced comminuted fracture of shaft of right fibula, initial encounter for closed fracture; S92.101A Unspecified fracture of right talus, initial encounter for closed fracture | CPT/HCPCS: 73700 ==

== ENCOUNTER → 2025-04-16 06:49 | Day surgery (SDC) | payer OTHER, SELFPAY ==
--- OUTSIDE RECORDS SUMMARY | 2025-04-07 12:23 | XMS_ITS | Encounter Summary ---
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 04/07/2025 1:40 PM EDT No acute fracture or dislocation. If this radiology report contains a blank impression section, it is an incomplete radiology report. Please contact the interpreting radiologist or applicable radiology division as soon as possible to obtain the completed interpretation. Workstation ID: [id number] Narrative 04/07/2025 1:40 PM EDT COMPARISON: None available. FINDINGS: There is no evidence of acute fracture or dislocation. Joint spaces are preserved. There is no abnormal soft tissue swelling identified. Resulting Agency Comment [id number] Procedure Note Khalif Bearden MD - 04/07/2025 COMPARISON: None available. FINDINGS: There is no evidence of acute fracture or dislocation. Joint spaces arepreserved. There is no abnormal soft tissue swelling identified. IMPRESSION: No acute fracture or dislocation. If this radiology report contains a blank impression section, it is anincomplete radiology report. Please contact the interpreting radiologistor applicable radiology division as soon as possible to obtain thecompleted interpretation. Workstation ID: [id number] us Renny TRUONG XR PROCEDURES Final Result documented in this encounter Visit Diagnoses Diagnosis Closed nondisplaced fracture of body of right talus, initial encounter- Primary Traumatic rupture of right Achilles tendon, initial encounter Nondisplaced fracture of medial malleolus of right tibia, initial encounter for closed fracture documented in this encounter Administered Medications Inactive Administered Medications - up to 3 most recent administrations Medication Order MAR Action Action Date Dose Rate Site morphine injection 6 mg 6 mg, intravenous, Once, On 04/07/25 at 1245, 1 dose, Assess pain, sedation, and respiratory rate prior to each opioid administration. Given 04/07/2025 12:57 PM EDT 6 mg oxyCODONE IR (ROXICODONE) tablet 5 mg 5 mg, oral, Once, On 04/07/25 at 1415, 1 dose, Assess pain, sedation, and respiratory rate prior to each opioid administration. Given 04/07/2025 2:42 PM EDT 5 mg documented in this encounter Active and Recently Administered Medications Times are shown in EDT. Scheduled Medication Order 04/05/2025 04/06/2025 04/07/2025 morphine injection 6 mg (COMPLETED) 6 mg, intravenous, Once, On 04/07/25 at 1245, 1 dose, Assess pain, sedation, and respiratory rate prior to each opioid administration. 1257 (Given - Provid er: Romelia Watts RN) oxyCODONE IR (ROXICODONE) tablet 5 mg (COMPLETED) 5 mg, oral, Once, On 04/07/25 at 1415, 1 dose, Assess pain, sedation, and respiratory rate prior to each opioid administration. 1442 (Given - Provid er: Elliot Arriaza RN) documented in this encounter Care Teams Tour Manager Relationship Specialty Start Date End Date Keily Escobar MD [address] [place] [address] PCP - General Internal Medicine 04/07/25 documented as of this encounter
--- NOTE | 2025-04-12 10:02 | P.CONAN_ITS ---
Documented by User: Yvette Wallace NP 04/16/25 08:29 HPI - Anesthesia Eval Consult details Narrative: Rescheduled by surgeon d/t too much swelling 34yo M for Right Ankle Fracture ORIF [facility] Active Problems Active Problems: All Active Problems Ankle fracture, right (Acute) Schmidt fracture (Acute) Instability of right shoulder joint (Acute) Past Medical History Medical History History of HPV infection Hx of strain of rotator cuff Family History Family History Other No significant family history Family history of problems with anesthesia: No Surgical History Surgical History Hx of shoulder surgery History of surgery History of Problems with Anesthesia: No Social History Social History Are you a primary primary care provider to a significant other at home: No Do you presently have visiting nurse or other home services: No Alcohol intake: current Alcohol intake frequency: holidays/special occasions only Patient Tobacco Use Status: Current everyday Tobacco user Tobacco use type: Cigarette Cigarettes Per Day: 10 Years Smoked: 10 e-Cigarette/Vaping Use: Currently Using Second Hand Smoke Exposure: No Use of substances other than those prescribed or required for medical reasons: Yes Are you DNR?: No Advance Directives: No Advance Directives Information Provided: Yes Poor oral hygiene: No Current occupational status: employed 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 Allergies Allergy/AdvReac Type Severity Reaction Status Date / Time No Known Allergies (No Known Allergy Verified 04/11/25 14:26 Allergies*) Assessment and Plan Assessment Anesthesia Assessment: Chart Reviewed Final Anesthetic Review Family History of Problems with Anesthesia: No History of Problems with Anesthesia: No Documented by User: Walker Wells MD 04/17/25 10:16 PMFSH Past Medical History Medical History History of HPV infection Hx of strain of rotator cuff Functional capacity: independent ambulation Family History Family History Other No significant family history Surgical History Surgical History Hx of shoulder surgery History of surgery Social History Social History Are you a primary primary care provider to a significant other at home: No Do you presently have visiting nurse or other home services: No Alcohol intake: current Alcohol intake frequency: holidays/special occasions only Patient Tobacco Use Status: Current everyday Tobacco user Tobacco use type: Cigarette Cigarettes Per Day: 10 Years Smoked: 10 e-Cigarette/Vaping Use: Currently Using Second Hand Smoke Exposure: No Use of substances other than those prescribed or required for medical reasons: Yes Are you DNR?: No Advance Directives: No Advance Directives Information Provided: Yes Poor oral hygiene: No Current occupational status: employed Current occupation: water dept/ rt hand Narrative Narrative: mj daily Meds Allergies Allergy/AdvReac Type Severity Reaction Status Date / Time No Known Allergies (No Known Allergy Verified 04/11/25 14:26 Allergies*) Exam Exam Date and Time: 04/17/25 Airway Mallampati Class: II TM Dist: >3cm Neck ROM: Full Heart: rrr Lungs: ctab vesicular Assessment and Plan Assessment Anesthesia Assessment: Anesthesia Plan Discussed Final Anesthetic Review NPO: Yes ASA Class: II Final Preanesthetic Review: No Changes in Pt Med Stat, Meds/Allgs Chart Reviewed, Consent Obtained/Reviewed and Anes Risks/Benef Reviewed Patient Risk: Low Procedure Risk: Low Anesthetic Plan Anesthetic Plan: GA and Regional Block Disposition: Standard PACU
--- OUTSIDE RECORDS SUMMARY | 2025-04-12 10:44 | XMS_ITS | Clinical Summary ---
Author Organization [facility] Address [address] [place] [phone] Phone Care Team Providers Care Industrial Hygiene Technician Name Role Phone Pcp, Unknown Primary Care Provider Unavailabl e Allergies No known active allergies Medications No known medications Encounters Date Type Department Care Team Description 01/23/2025 9:40 AM EDT Ancillary Procedure [facility], [facility] [address] [place] [address] Florian Uriostegui PA-C 01/23/2025 8:45 AM EDT - 01/23/2025 10:23 AM EDT Emergency [facility] [address] [place] [address] Discharge Disposition: Home or Self Care from Last 3 Months Social History Tobacco Use Types Packs/Day Years Used Date Smoking Tobacco: Never Assessed Education Answer Date Recorded Are you interested in more education? Not on alex e 01/23/2025 Are you concerned about learning? Not on file 01/23/2025 No 01/23/2025 No 01/23/2025 Food Answer Date Recorded Within the past 6 months we worried whether our food would run out before we got money to buy more. Never True 01/23/2025 Within the past 6 months the food we bought just didn't last and we didn't have enough money to get more. Never True Residential Stability Answer Date Recor ded What is your housing situation today? I have jordan sing 01/23/2025 How many times have you move d in the past 12 months? Zero (I did not move) 01/23/2025 Paying for Meds Answer Date Recorded Do you have trouble paying for medicines? No 01/23/2025 Paying Utility Bills Answer Date Record ed Do you have trouble paying your heating or elect ricity bill? No 01/23/2025 Transportation Answer Date Recorded Has the lack of transportati on kept you from medical appointments or from getting medications? No 01/23/2025 Digital Access Answer Date Recorded No 01/23/2025 Yes 01/23/2025 Do you have reliable internet access at home? Ye s 01/23/2025 Do you have a device (e.g., phone, tablet, computer) with a working camera? Yes 01/23/2025 Intimate Partner Violence Answer Date R ecorded Are you denied basic needs s uch as food, clothing, or medical care? No 01/23/2025 In the past 12 months have y ou been in a relationship with a person who hurts, threatens, or tries to control you? No 01/23/2025 Are you denied basic needs s uch as food, clothing, or medical care? No 01/23/2025 In the past 12 months have y ou been in a relationship with a person who hurts, threatens, or tries to control you? No 01/23/2025 Sex and Gender Information Value Date Recorded Sex Assigned at Male 01/23/2025 8:25 AM EDT Legal Sex Male 7:50 AM EDT Gender Identity Male 01/23/2025 8:25 AM EDT Sexual Orientation Straight 01/23/2025 8: 25 AM EDT Last Filed Vital Signs Vital Sign Reading Time Taken Comments Blood Pressure 133/79 01/23/2025 9:29 AM EDT Pulse 66 01/23/2025 9:29 AM EDT Temperature 36.5 C (97.7 F) 01/23/2025 9:29 AM EDT Respiratory Rate 16 01/23/2025 9:29 AM EDT Oxygen Saturation 99% 01/23/2025 9:29 AM EDT Inhaled Oxygen Concentration - - Weight 70.5 kg (155 lb 6.4 oz) 01/23/2025 8:19 A M EDT Height - - Body Mass Index - - Plan of Treatment Health Maintenance Due Date Last Done Comments Adult Td,Tdap Booster 1990 DEPRESSION SCREENING 2002 SMOKING Hx and SMOKELESS TOB ACCO SCREENING 09/28/2003 HEPATITIS C SCREENING 2008 HIV ONE-TIME SCREENING (18-6 5 YEARS) 2008 INFLUENZA VACCINE (#1) 2025 COVID-19 VACCINE (2024-2 6 season) 2025 HEPATITIS A VACCINES Aged Out No long er eligible based on patient's age to complete this topic HIB VACCINES Aged Out No longer eligi ble based on patient's age to complete this topic MENINGOCOCCAL VACCINES (ACWY) Aged Out No longer eligible based on patient's age to complete this topic MENINGOCOCCAL VACCINES (B) Aged Out N o longer eligible based on patient's age to complete this topic PNEUMOCOCCAL VACCINES (0-49 years) Aged Out No longer eligible based on patient's age to complete this topic Medical Devices Not on file Procedures Procedure Name Priority Date/Time Associated Diagnosis Comments US BEDSIDE Routine 01/23/2025 9:38 AM EDT URINALYSIS W/REFLEX URINE CULTURE STAT 01/23/2025 9:10 AM EDT C-REACTIVE PROTEIN Routine 01/23/2025 8: 58 AM EDT LIPASE STAT 01/23/2025 8:58 AM EDT LFTS (HEPATIC PANEL) STAT 01/23/2025 8:58 AM EDT BASIC METABOLIC PANEL STAT 01/23/2025 8:58 AM EDT CBC AND DIFFERENTIAL STAT 01/23/2025 8:58 AM EDT from Last 3 Months Results * Urinalysis w/reflex Urine Culture (01/23/2025 9:10 AM EDT) COLOR Yellow Yellow [facility] CLARITY Clear [facility] GLUCOSE Negative Negative [facility] BILI Negative Negative [facility] KETONES Negative Negative [facility] SPECIFIC GRAVITY 1.025 1.005 - 1.030 [facility] BLOOD Negative Negative [facility] PH 6.0 5.0 - 8.0 [facility] Protein-UA Negative Negative [facility] NITRITE Negative Negative [facility] Leukocyte esterase, ur Negative Negative [facility] Urine (Urine) 01/23/2025 9:1 0 AM EDT 01/23/2025 9:32 AM EDT Bobby Kenney MD URINE ORDERABLES Final Res ult Performing Organization Address [facility] Co de Phone Number [address] [address] * LFTs (hepatic panel) (01/23/2025 8:58 AM EDT) ALKALINE PHOSPHATASE 71 39 - 117 U/L [facility] TOTAL BILIRUBIN 0.5 0.0 - 1.2 mg/dL [facility] DIRECT BILIRUBIN 0.1 0.0 - 0.2 mg/dL [facility] Bilirubin (Indirect) NOT CALCULATED 0 - 1.5 mg/dL [facility] AST 23 0 - 37 U/L [facility] ALT 18 0 - 40 U/L [facility] TOTAL PROTEIN 7.2 6.5 - 8.0 g/dL [facility] ALBUMIN 4.5 3.9 - 4.8 g/dL [facility] GLOBULIN 2.7 1 - 4.8 g/dL [facility] A/G Ratio 1.67 1.00 - 4.80 RATIO [facility] Blood 01/23/2025 8:58 AM EDT 01/23/2025 9:09 AM EDT Bobby Kenney MD LAB BLOOD ORDERABLES Final Result Performing Organization Address [facility] Co de Phone Number [address] [address] * CBC and differential (01/23/2025 8:58 AM EDT) WBC 5.05 4.00 - 11.00 K/uL [facility] RBC 5.30 4.50 - 5.90 M/uL [facility] HGB 15.6 13.5 - 17.5 g/dL [facility] HCT 46.3 41.0 - 53.0 % [facility] PLT 240 150 - 450 K/uL [facility] MCV 87.4 80.0 - 100.0 fL [facility] MCH 29.4 27.0 - 31.0 pg [facility] MCHC 33.7 32.0 - 36.0 g/dL [facility] RDW 12.7 11.5 - 14.5 % [facility] MPV 9.1 8.4 - 12.0 fL [facility] NRBC 0.00 0.00 /100 WBCs [facility] ABSOLUTE NRBC 0.00 0.00 K/uL [facility] DIFF METHOD Auto [facility] NEUTS 56.4 48.0 - 76.0 % [facility] LYMPHS 31.7 18.0 - 41.0 % [facility] MONOS 8.1 4.0 - 11.0 % [facility] EOS 2.8 0.0 - 5.0 % [facility] BASOS 0.6 0.0 - 1.5 % [facility] Granulocytes, immature (%) 0.4 0.0 - 0.9 % [facility] ABSOLUTE NEUTS 2.85 1.92 - 7.60 K/uL [facility] ABSOLUTE LYMPHS 1.60 0.72 - 4.10 K/uL [facility] ABSOLUTE MONOS 0.41 0.16 - 1.10 K/uL [facility] ABSOLUTE EOS 0.14 0.00 - 0.50 K/uL [facility] ABSOLUTE BASOS 0.03 0.00 - 0.15 K/uL [facility] Granulocytes, immature 0.02 0.00 - 0.09 K/uL [facility] Blood 01/23/2025 8:58 AM EDT 01/23/2025 9:09 AM EDT us Bobby Kenney MD LAB BLOOD ORDERABLES Final Result [facility] [address] [place] [address] * C-Reactive Protein (01/23/2025 8:58 AM EDT) C REACTIVE PROTEIN <3.0 0.0 - 4.0 mg/L [facility] 01/23/2025 8:58 AM EDT 01/23/2025 9:09 AM EDT us Bobby Kenney MD LAB BLOOD ORDERABLES Final Result Performing Organization Address City/[facility]/ZIP Co de Phone Number [address] [address] * Lipase (01/23/2025 8:58 AM EDT) LIPASE 16 16 - 63 U/L [facility] Blood 01/23/2025 8:58 AM EDT 01/23/2025 9:09 AM EDT Bobby Kenney MD LAB BLOOD ORDERABLES Final Result Performing Organization Address [facility] de Phone Number [address] [address] * (ABNORMAL) Basic metabolic panel (01/23/2025 8:58 AM EDT) SODIUM 139 133 - 146 mmol/L [facility] CHLORIDE 103 96 - 108 mmol/L [facility] POTASSIUM 4.5 3.3 - 5.1 mmol/L [facility] Comment:Specimen slightly he molyzed, result may be falsely elevated. CO2 25 21 - 35 mmol/L [facility] BUN 10 6 - 19 mg/dL [facility] CREATININE 1.00 0.5 - 1.5 mg/dL [facility] GLUCOSE 127(H) 70 - 99 mg/dL [facility] CALCIUM 9.5 8.4 - 10.3 mg/dL [facility] EGFR 101 >59 mL/min/1.7 3m2 [facility] Comment:Estimated glomerular filtration rate calculated using the CKD-EPI refit equation. ANION GAP 16 10 - 20 mmol/L [facility] Blood 01/23/2025 8:58 AM EDT 01/23/2025 9:09 AM EDT Bobby Kenney MD LAB BLOOD ORDERABLES Final Result [address] [phone] from Last [address] [place], [place] [id number] [place], [place] [address]O Care Teams Industrial Hygiene Technician Relationship Specialty Start Date End Date Pcp, Unknown PCP - General 01/23/25 Additional Source Comments The information contained in this document represents components of the legal health record. It is not the complete legal health record.[facility]
--- OUTSIDE RECORDS SUMMARY | 2025-04-12 10:45 | XMS_ITS | Clinical Summary ---
Author Organization [facility] Address [address] [place] [address] Care Team Providers Care Franchise Development Manager Name Role Phone Keily Ocasio MD Primary Care Provider Allergies No known active allergies Medications oxyCODONE IR (ROXICODONE) 5 mg tablet Take 1 tablet (5 mg total) by mouth every 4 hours as needed for breakthrough pain or pain for up to 3 days. Max Daily Amount: 30 mg 12 tablet 04/10/20 25 Encounters Date Type Department Care Team Description 04/07/2025 12:23 PM EDT - 04/07/2025 4:39 PM EDT Emergency [facility] Emergency Department [address] [place] [id number] Renny Sims MD Closed nondisplaced fracture of body of right talus, initial encounter (Primary Dx); Traumatic rupture of right Achilles tendon, initial encounter; Nondisplaced fracture of medial malleolus of right tibia, initial encounter for closed fracture Discharge Disposition: Home or Self Care (01) from Last 3 Months Social History Tobacco Use Types Packs/Day Years Used Date Smoking Tobacco: Never Assessed Sex and Gender Information Value Date Recorded Sex Assigned at Male 04/07/2025 12:30 PM EDT Legal Sex Male 12:23 PM EDT Gender Identity Not on file Sexual Orientation Not on file Last Filed Vital Signs Vital Sign Reading [...] Mass Index 19.9 04/07/2025 12:25 PM EDT Plan of Treatment Health Maintenance Due Date Last Done Comments HIV Screening 1990 Hepatitis C Screening 1990 Varicella Vaccines (1 of 2 - 13+ 2-dose series) 09/28/2003 Hepatitis B Vaccines (1 of 3 - 19+ 3-dose series) 2009 DTaP,Tdap,and Td Vaccines (1 - Tdap) 06/08/2013 06/07/2013 Alcohol/Substance Use Screening 07/04/2024 Depression Screening and Follow-Up 07/04/2024 Social Drivers of Health Deysi ual Screening 07/04/2024 COVID-19 Vaccine (1 - 2023-2 5 season) 2025 Influenza Vaccine (#1) 2025 RSV Vaccine (60+ years old a nd patients) (1 - 1-dose 75+ series) 2065 Pneumococcal Vaccine: Pediat amor (0-5 Years) and At-Risk Patients (6-50 Years) Aged Out No longer eligible b ased on patient's age to complete this topic Procedures * Due to [place] state law, this organization might not be sharing [...] LEFT STAT 04/07/2025 1 :21 PM EDT from Last 3 Months Results * Due to [place] state law, this organization might not be sharing [...] to obtain the completed interpretation. Workstation ID: [id number] Up-to-date CT equipment and radiation dose reduction [...] of the calf tendons.. Resulting Agency Comment [id number] Procedure Note Khalif Bearden MD - 04/07/2025 [...] possible to obtain thecompleted interpretation. Workstation ID: [id number] Up-to-date CT equipment and radiation dose reduction [...] to obtain the completed interpretation. Workstation ID: [id number] Impressions 04/07/2025 1:44 PM EDT Acute nondisplaced intra-articular fracture of the medial malleolus. If this radiology report contains a blank impression section, it is an incomplete radiology report. Please contact the interpreting radiologist or applicable radiology division as soon as possible to obtain the completed interpretation. Workstation ID: [id number] Narrative 04/07/2025 1:44 PM EDT COMPARISON: None available. FINDINGS: There is an acute intra-articular fracture at the medial malleolus. The lateral and posterior malleoli appear intact. No dislocation. Joint spaces are preserved. There soft tissue swelling of the ankle. Resulting Agency Comment [id number] Procedure Note Khalif Bearden MD - 04/07/2025 [...] possible to obtain thecompleted interpretation. Workstation ID: [id number] us Renny Layer IMG XR PROCEDURES Edited Result - Final [...] to obtain the completed interpretation. Workstation ID: [id number] Impressions 04/07/2025 1:44 PM EDT Acute nondisplaced intra-articular fracture of the medial malleolus. If this radiology report contains a blank impression section, it is an incomplete radiology report. Please contact the interpreting radiologist or applicable radiology division as soon as possible to obtain the completed interpretation. Workstation ID: [id number] Narrative 04/07/2025 1:44 PM EDT COMPARISON: None available. FINDINGS: There is an acute intra-articular fracture at the medial malleolus. The lateral and posterior malleoli appear intact. No dislocation. Joint spaces are preserved. There soft tissue swelling of the ankle. Resulting Agency Comment [id number] Procedure Note Khalif Bearden MD - 04/07/2025 [...] possible to obtain thecompleted interpretation. Workstation ID: [id number] us Renny Layer IMG XR PROCEDURES Edited Result - Final [...] to obtain the completed interpretation. Workstation ID: [id number] Impressions 04/07/2025 1:44 PM EDT Acute nondisplaced intra-articular fracture of the medial malleolus. If this radiology report contains a blank impression section, it is an incomplete radiology report. Please contact the interpreting radiologist or applicable radiology division as soon as possible to obtain the completed interpretation. Workstation ID: [id number] Narrative 04/07/2025 1:44 PM EDT COMPARISON: None available. FINDINGS: There is an acute intra-articular fracture at the medial malleolus. The lateral and posterior malleoli appear intact. No dislocation. Joint spaces are preserved. There soft tissue swelling of the ankle. Resulting Agency Comment [id number] Procedure Note Khalif Bearden MD - 04/07/2025 [...] possible to obtain thecompleted interpretation. Workstation ID: [id number] us Renny Sims MD IMReny XR PROCEDURES Edited Result - Final * [...] to obtain the completed interpretation. Workstation ID: [id number] Narrative 04/07/2025 1:40 PM EDT COMPARISON: None available. FINDINGS: There is no evidence of acute fracture or dislocation. Joint spaces are preserved. There is no abnormal soft tissue swelling identified. Resulting Agency Comment [id number] Procedure Note Khalif Bearden MD - 04/07/2025 [...] possible to obtain thecompleted interpretation. Workstation ID: [id number] Renny Sims MD IMG XR PROCEDURES Final Result from Last 3 Months Insurance [employer] Care Teams Franchise Development Manager Relationship Specialty Start Date End Date Keily Ocasio MD [address] [place] [address] PCP - General Internal Medicine 04/07/25
[2025-04-16 07:22] VITALS: BMI 20.5
[2025-04-16 07:24] VITALS: BP 123/79; PULSE 70; RESP 18; TEMP 37.2; O2SAT 99
--- NOTE | 2025-04-16 07:45 | PC.NURSE ---
Dr. Lynn at bedside to evaluate Right ankle. Dsg removed. Per Dr. Lynn pt ankle still has swelling at this time. pt to be rescheduled for another day this week. pt aware and agreeable to plan.
== END ==
LOC: HO.SSS 06:49
PROVIDERS: Visit Provider Orthopaedic Surgery
DX: S82.51XA Displaced fracture of medial malleolus of right tibia, initial encounter for closed fracture (principal); Z53.09 Procedure and treatment not carried out because of other contraindication; R22.41 Localized swelling, mass and lump, right lower limb
CPT/HCPCS: J0131; J0665; J0690; J1100; J2250; J3010

== ENCOUNTER 2025-04-17 08:00 | Day surgery (SDC) | payer OTHER, SELFPAY ==
--- OUTSIDE RECORDS SUMMARY | 2025-04-16 12:57 | XMS_ITS | Clinical Summary ---
Author Organization [facility] Address [address] [place] [phone] Phone Care Team Providers Care Rabbet Operator Name Role Phone Pcp, Unknown Primary Care Provider Unavailabl e Allergies No known active allergies Medications No known medications Encounters Date Type Department Care Team Description 01/23/2025 9:40 AM EDT Ancillary Procedure [facility], [facility] [address] [place] [address] Florian Uriostegui PA-C 01/23/2025 8:45 AM EDT - 01/23/2025 10:23 AM EDT Emergency [facility] [address] [place] [address] Discharge Disposition: Home or Self Care from [...] (01/23/2025 9:10 AM EDT) COLOR Yellow Yellow [facility] CLARITY Clear [facility] GLUCOSE Negative Negative [facility] BILI Negative Negative [facility] KETONES Negative Negative [facility] SPECIFIC GRAVITY 1.025 1.005 - 1.030 [facility] BLOOD Negative Negative [facility] PH 6.0 5.0 - 8.0 [facility] Protein-UA Negative Negative [facility] NITRITE Negative Negative [facility] Leukocyte esterase, ur Negative Negative [facility] Urine (Urine) 01/23/2025 9:1 0 AM EDT 01/23/2025 9:32 AM EDT Bobby Kenney MD URINE ORDERABLES Final Res ult Performing Organization Address [facility] Co de Phone Number [address] [address] * LFTs (hepatic panel) (01/23/2025 8:58 AM EDT) ALKALINE PHOSPHATASE 71 39 - 117 U/L [facility] TOTAL BILIRUBIN 0.5 0.0 - 1.2 mg/dL [facility] DIRECT BILIRUBIN 0.1 0.0 - 0.2 mg/dL [facility] Bilirubin (Indirect) NOT CALCULATED 0 - 1.5 mg/dL [facility] AST 23 0 - 37 U/L [facility] ALT 18 0 - 40 U/L [facility] TOTAL PROTEIN 7.2 6.5 - 8.0 g/dL [facility] ALBUMIN 4.5 3.9 - 4.8 g/dL [facility] GLOBULIN 2.7 1 - 4.8 g/dL [facility] A/G Ratio 1.67 1.00 - 4.80 RATIO [facility] Blood 01/23/2025 8:58 AM EDT 01/23/2025 9:09 AM EDT Bobby Kenney MD LAB BLOOD ORDERABLES Final Result Performing Organization Address [facility] Co de Phone Number [address] [address] * CBC and differential (01/23/2025 8:58 AM EDT) WBC 5.05 4.00 - 11.00 K/uL [facility] RBC 5.30 4.50 - 5.90 M/uL [facility] HGB 15.6 13.5 - 17.5 g/dL [facility] HCT 46.3 41.0 - 53.0 % [facility] PLT 240 150 - 450 K/uL [facility] MCV 87.4 80.0 - 100.0 fL [facility] MCH 29.4 27.0 - 31.0 pg [facility] MCHC 33.7 32.0 - 36.0 g/dL [facility] RDW 12.7 11.5 - 14.5 % [facility] MPV 9.1 8.4 - 12.0 fL [facility] NRBC 0.00 0.00 /100 WBCs [facility] ABSOLUTE NRBC 0.00 0.00 K/uL [facility] DIFF METHOD Auto [facility] NEUTS 56.4 48.0 - 76.0 % [facility] LYMPHS 31.7 18.0 - 41.0 % [facility] MONOS 8.1 4.0 - 11.0 % [facility] EOS 2.8 0.0 - 5.0 % [facility] BASOS 0.6 0.0 - 1.5 % [facility] Granulocytes, immature (%) 0.4 0.0 - 0.9 % [facility] ABSOLUTE NEUTS 2.85 1.92 - 7.60 K/uL [facility] ABSOLUTE LYMPHS 1.60 0.72 - 4.10 K/uL [facility] ABSOLUTE MONOS 0.41 0.16 - 1.10 K/uL [facility] ABSOLUTE EOS 0.14 0.00 - 0.50 K/uL [facility] ABSOLUTE BASOS 0.03 0.00 - 0.15 K/uL [facility] Granulocytes, immature 0.02 0.00 - 0.09 K/uL [facility] Blood 01/23/2025 8:58 AM EDT 01/23/2025 9:09 AM EDT us Bobby Kenney MD LAB BLOOD ORDERABLES Final Result [facility] [address] [place] [address] * C-Reactive Protein (01/23/2025 8:58 AM EDT) C REACTIVE PROTEIN <3.0 0.0 - 4.0 mg/L [facility] 01/23/2025 8:58 AM EDT 01/23/2025 9:09 AM EDT us Bobby Kenney MD LAB BLOOD ORDERABLES Final Result Performing Organization Address City/[facility]/ZIP Co de Phone Number [address] [address] * Lipase (01/23/2025 8:58 AM EDT) LIPASE 16 16 - 63 U/L [facility] Blood 01/23/2025 8:58 AM EDT 01/23/2025 9:09 AM EDT Bobby Kenney MD LAB BLOOD ORDERABLES Final Result Performing Organization Address [facility] de Phone Number [address] [address] * (ABNORMAL) Basic metabolic panel (01/23/2025 8:58 AM EDT) SODIUM 139 133 - 146 mmol/L [facility] CHLORIDE 103 96 - 108 mmol/L [facility] POTASSIUM 4.5 3.3 - 5.1 mmol/L [facility] Comment:Specimen slightly he molyzed, result may be falsely elevated. CO2 25 21 - 35 mmol/L [facility] BUN 10 6 - 19 mg/dL [facility] CREATININE 1.00 0.5 - 1.5 mg/dL [facility] GLUCOSE 127(H) 70 - 99 mg/dL [facility] CALCIUM 9.5 8.4 - 10.3 mg/dL [facility] EGFR 101 >59 mL/min/1.7 3m2 [facility] Comment:Estimated glomerular filtration rate calculated using the CKD-EPI refit equation. ANION GAP 16 10 - 20 mmol/L [facility] Blood 01/23/2025 8:58 AM EDT 01/23/2025 9:09 AM EDT Bobby Kenney MD LAB BLOOD ORDERABLES Final Result [address] [address] from Last [address] [place], [place] [address] [place], [place] [address] Care Teams Rabbet Operator Relationship Specialty Start Date End Date Pcp, Unknown PCP - General 01/23/25 Additional Source Comments The information contained in this document represents components of the legal health record. It is not the complete legal health record.[facility]
--- OUTSIDE RECORDS SUMMARY | 2025-04-16 12:57 | XMS_ITS | Clinical Summary ---
Author Organization [facility] Address [address] [place] [address] Care Team Providers Care Home Health Care Worker Name Role Phone Keily Ocasio MD Primary [...] EDT - 04/07/2025 4:39 PM EDT Emergency [facility] Emergency Department [address] [place] [id number] Renny Sims MD Closed nondisplaced fracture of [...] to obtain the completed interpretation. Workstation ID: [id number] Up-to-date CT equipment and radiation dose reduction [...] of the calf tendons.. Resulting Agency Comment [id number] Procedure Note Khalif [place] MD - 04/07/2025 [...] possible to obtain thecompleted interpretation. Workstation ID: [id number] Up-to-date CT equipment and radiation dose reduction [...] to obtain the completed interpretation. Workstation ID: [id number] Impressions 04/07/2025 1:44 PM EDT Acute nondisplaced intra-articular fracture of the medial malleolus. If this radiology report contains a blank impression section, it is an incomplete radiology report. Please contact the interpreting radiologist or applicable radiology division as soon as possible to obtain the completed interpretation. Workstation ID: [id number] Narrative 04/07/2025 1:44 PM EDT COMPARISON: None available. FINDINGS: There is an acute intra-articular fracture at the medial malleolus. The lateral and posterior malleoli appear intact. No dislocation. Joint spaces are preserved. There soft tissue swelling of the ankle. Resulting Agency Comment [id number] Procedure Note Khalif [place] MD - 04/07/2025 [...] possible to obtain thecompleted interpretation. Workstation ID: [id number] us Renny Layer IMG XR PROCEDURES Edited [...] to obtain the completed interpretation. Workstation ID: [id number] Impressions 04/07/2025 1:44 PM EDT Acute nondisplaced intra-articular fracture of the medial malleolus. If this radiology report contains a blank impression section, it is an incomplete radiology report. Please contact the interpreting radiologist or applicable radiology division as soon as possible to obtain the completed interpretation. Workstation ID: [id number] Narrative 04/07/2025 1:44 PM EDT COMPARISON: None available. FINDINGS: There is an acute intra-articular fracture at the medial malleolus. The lateral and posterior malleoli appear intact. No dislocation. Joint spaces are preserved. There soft tissue swelling of the ankle. Resulting Agency Comment [id number] Procedure Note Khalif [place] MD - 04/07/2025 [...] possible to obtain thecompleted interpretation. Workstation ID: [id number] us Renny Layer IMG XR PROCEDURES Edited [...] to obtain the completed interpretation. Workstation ID: [id number] Impressions 04/07/2025 1:44 PM EDT Acute nondisplaced intra-articular fracture of the medial malleolus. If this radiology report contains a blank impression section, it is an incomplete radiology report. Please contact the interpreting radiologist or applicable radiology division as soon as possible to obtain the completed interpretation. Workstation ID: [id number] Narrative 04/07/2025 1:44 PM EDT COMPARISON: None available. FINDINGS: There is an acute intra-articular fracture at the medial malleolus. The lateral and posterior malleoli appear intact. No dislocation. Joint spaces are preserved. There soft tissue swelling of the ankle. Resulting Agency Comment [id number] Procedure Note Khalif [place] MD - 04/07/2025 [...] possible to obtain thecompleted interpretation. Workstation ID: [id number] us Renny Sims MD IMReny XR PROCEDURES [...] to obtain the completed interpretation. Workstation ID: [id number] Narrative 04/07/2025 1:40 PM EDT COMPARISON: None available. FINDINGS: There is no evidence of acute fracture or dislocation. Joint spaces are preserved. There is no abnormal soft tissue swelling identified. Resulting Agency Comment [id number] Procedure Note Khalif [place] MD - 04/07/2025 [...] possible to obtain thecompleted interpretation. Workstation ID: [id number] Renny Sims MD IMG XR PROCEDURES Final Result from Last 3 Months Insurance [employer] Care Teams Home Health Care Worker Relationship Specialty Start Date End Date Keily Ocasio MD [address] [place] [address] PCP - General Internal Medicine 04/07/25
[2025-04-17] VITALS (8 sets, daily range): BP systolic 98–127; BP diastolic 45–85; PULSE 70–86; RESP 12–16; TEMP 36.4–37; O2SAT 96–99; BMI 19.6
--- NOTE | ~2025-04-17 | FL_ITS ---
EXAMINATION: XR FLUOROSCOPY WITH IMAGES CLINICAL INFORMATION: Right ankle ORIF COMPARISON: None available. TECHNIQUE: Fluoroscopy provided to: Dr. Lynn Fluoroscopy time: 1.6 minutes DAP: 2.5 mGycm2 Images: 4 FINDINGS: Fluoroscopy used for for internal fixation of a distal tibial and talus fracture. See operative report for details. FL/FL guidance in OR IMPRESSION: As above Electronically signed by: Gen Mcdaniel MD 04/17/2025 04:48 PM EDT
--- NOTE | 2025-04-17 09:00 | PC.NURSE ---
md reich by bedside revaluating right swollen ankle. okay to proceed. remains elevated.
[2025-04-17] MEDS: Lactated Ringers 1,000 ML 50 ML IVCONT (09:15)
--- NOTE | 2025-04-17 10:17 | PM.ANESPROC ---
Procedures Date of Service Date of Service: 04/17/25 Nerve Block Nerve Block 1: Time out performed: Yes Local anesthetic used: other (30 cc 0.25% bupivacaine with PF dexamethasone) Amount of anesthesia used (mL): 30 Side: right Nerve blocks: femoral and other (popliteal) Procedure successful: Yes Patient tolerated procedure: well Complications: none and other (transient paresthesia)
--- NOTE | 2025-04-17 11:23 | MHC.SHP ---
Pre-Procedural Eval Section A - 24 Hr Update-Section A only Date of Service: 04/17/25 The patient is an INPATIENT: No Changes since office visit: No Cold of Flu in the past 2 weeks, No New Medical Problems, No Changes in Medication and No Patient answered all questions The patient has been examined within 24 hours of the surgical procedure. The History & Physical has been completed within 30 days and I have reviewed it.: Yes Section B - Complete if H&P > 30 days Chief Complaint: Displaced fracture of medial malleolus of right Allergies: Allergies Allergy/AdvReac Type Severity Reaction Status Date / Time No Known Allergies (No Known Allergy Verified 04/11/25 14:26 Allergies*) Plan I have reviewed the history and physical and performed a pertinent physical examination on my patient. No changes have occurred unless specified. Time Spent With Patient Time: Total time managing care of this patient today ____ minutes.
--- NOTE | 2025-04-17 14:31 | PM.OP ---
Brief Operative Note Date of Service: 04/17/25 Pre-op diagnosis: Right talus fracture Right medial malleolus fracture Right Achilles tendon rupture Post-op diagnosis: same Procedure: ORIF talus ORIF medial malleolus Implants: [place] 3.5 compression screw ( dart ) 4.0 headless compression axos x 2 3.5 full threaded cortical screw Surgeon: Fish Lynn MD Anesthesia: GLMA and regional Was an Core Cutter And Reamer used for this Procedure?: Yes Core Cutter And Reamer: Adelina Flores Estimated blood loss (mL): 50 Tourniquet time (min): 120 IV fluids (mL): 1,500 Pathology: none sent Condition: stable Disposition: PACU
--- NOTE | 2025-04-19 09:20 | P.OP_ITS ---
Operative Note Operative Note Date of Service: 04/17/25 Narrative: Date of Service: 04/17/25 Pre-op diagnosis: Right talus fracture Right medial malleolus fracture Right Achilles tendon rupture Post-op diagnosis: same Procedure: ORIF talus ORIF medial malleolus Implants: [place] 3.5 compression screw ( dart ) 4.0 headless compression axos x 2 3.5 full threaded cortical screw Surgeon: Fish Lynn MD Anesthesia: GLMA and regional Was an Big Data Solutions Architect used for this Procedure?: Yes Big Data Solutions Architect: Adelina Flores Estimated blood loss (mL): 50 Tourniquet time (min): 120 IV fluids (mL): 1,500 Pathology: none sent Condition: stable Disposition: PACU Procedure in detail: Patient was brought to the operating room and placed supine on the operative table. All bony prominences were well padded and a time-out was called to identify proper site proper procedure proper surgeon. IV antibiotics per weight were administered. I began by exsanguinating limb is slightly tourniquet to 300 mm Hg. An oblique Perri view was obtained and anteromedial dissection was taken down to the anteromedial talus. Incision was taken anterior to midline from medial mal to base of the first metatarsal. delicate dissection was taken down to the extensor retinaculum and the saphenous vein and n. were protected. The anteromedial aspect of the talus was identified visually and using flouro. The fracture was minimally displaced and so a drill was passed into the posterolateral aspect of the talus and a fully threaded bicortical screw was placed without compressing. The head was counter-sunk. I then turned to the lateral talus. An incision was made anterolaterally along the 4th meta-tarsal and the superficial peroneal n. was retracted posteriorly. The anterolateral talar head was identified and a compression screw was drilled lateral to posteromedial and a compression screw was placed across the fracture fragments. Biplanar flouro was used to confirm hardware position and fracture alignment. The compression screw was headless. Once I was satisfied with the radiographs and that the screw heads were buried I irrigated copiously and closed with absorbable suture and skin glue. I then turned my attension to the medial malleolus. The transverse medial malleolar fracture was identified after skin incision. Full-thickness skin flaps were developed and, With a sharp tenaculum, the fracture was reduced. It was comminuted anteriorly but I was able to obtain a near anatomic reduction. 2 threaded K-wires were then placed from distal to proximal and perpendicular to the fracture. Biplanar fluoroscopy was used to confirm positioning and then they were overdrilled and 2 40 mm 4.0 partially- threaded Axos compression screws were placed across the fracture. I was satisfied with the position and the fracture reduction based on biplanar fluoroscopy and direct visualization as well as the hardware alignment. All instrumentation was removed and copious irrigation was performed. Absorbable suture and luz were used for closure and the patient was placed into sterile dressings and a boot given his achilles rupture. Tourniquet was let down and the patient was extubated brought to recovery room in stable condition there were no known complications.
== END 2025-04-17 16:19 | disposition home or self-care (01) ==
LOC: HO.SSS 08:00
PROVIDERS: Visit Provider Orthopaedic Surgery
PROC: (CPT 28445; principal; 2025-04-17 10:30)
DX: S82.51XA Displaced fracture of medial malleolus of right tibia, initial encounter for closed fracture (principal); S92.101A Unspecified fracture of right talus, initial encounter for closed fracture; S86.011A Strain of right Achilles tendon, initial encounter; M25.571 Pain in right ankle and joints of right foot; R20.0 Anesthesia of skin; R20.2 Paresthesia of skin; V86.56XA Driver of dirt bike or motor/cross bike injured in nontraffic accident, initial encounter; W22.09XA Striking against other stationary object, initial encounter; Y92.9 Unspecified place or not applicable; Y99.9 Unspecified external cause status; Z87.891 Personal history of nicotine dependence; Z98.890 Other specified postprocedural states
CPT/HCPCS: 28445; 27766; C1713; J0131; J0690; J1100; J1885; J2003; J2250; J2405; J2704; J3010

== ENCOUNTER → 2025-04-17 08:00 | Outpatient (BNV) | payer OTHER, SELFPAY | PROVIDERS: Visit Provider Orthopaedic Surgery | DX: S92.101A Unspecified fracture of right talus, initial encounter for closed fracture (principal); S82.51XA Displaced fracture of medial malleolus of right tibia, initial encounter for closed fracture | CPT/HCPCS: 27766; 28445 ==

== ENCOUNTER 2025-04-23 14:18 | Outpatient (AMB) | payer OTHER, SELFPAY ==
--- NOTE | 2025-04-23 14:27 | A.OFFVIS_ITS ---
Intake Visit Reasons: PO RT ankle ORIF 04/17/25 NE Intake Note: Sasha is a 34 year old male who presents today for a right ankle ORIF done 04/17/[address] Lynn. Patient states that he is having mild pain at the moment. He states that he has been having pain in his calf and ankle. Having off and on numbness in his toes. Accompanied by: Father Allergies No Known Allergies (No Known Allergies*) Allergy (Verified 04/23/25 14:30) HPI HPI PO RT ankle ORIF 04/17/25 NE: Details: Mr. Solis is a 34-year-old male who presents to the office today status post right talus ORIF performed on 04/17/[address] Lynn for a wound check. Patient has been in the splint nonweightbearing as instructed. Pain has been managed. No additional complaints PFSH Medical History History of HPV infection Hx of strain of rotator cuff Surgical History Hx of shoulder surgery History of surgery Family History Other No significant family history Social History Are you a primary student career development specialist to a significant other at home: No Do you presently have visiting nurse or other home services: No Alcohol intake: current Alcohol intake frequency: holidays/special occasions only Comment: COUNTS CORRECT Patient Tobacco Use Status: Current everyday Tobacco user Tobacco use type: Cigarette Cigarettes Per Day: 10 Years Smoked: 10 e-Cigarette/Vaping Use: Currently Using Second Hand Smoke Exposure: No Current occupational status: employed Current occupation: water dept/ rt hand Review of Systems Const All systems reviewed & are unremarkable except as noted in HPI and below Physical Exam Const General: cooperative, healthy appearing and no acute distress Resp Effort & Inspection: normal respiratory effort and able to speak in complete sen tences Extrem Other: Right foot moderate circumferential edema. Incision sites are clean dry and intact. No surrounding erythema or drainage. No signs of infection. Sensation is reportedly intact. Pedal pulse intact. Psych Appearance: grossly normal Mental Status: mental status grossly normal Attitude: cooperative Office Procedures Casting/Splints [id number] Leg splint application Procedure code (CPT) selection complete Assessment & Plan Assessment & Plan (1) Ankle fracture, right: Code(s): S82.891A - Other fracture of right lower leg, initial encounter for closed fracture Category: Medical (2) Rupture of right Achilles tendon: Code(s): S86.011A - Strain of right Achilles tendon, initial encounter Category: Medical Plan Mr. Solis is a 34-year-old male who presents to the office today status post right talus ORIF performed on 04/17/[address] Lynn for a wound check. Patient has been in the splint nonweightbearing as instructed. Pain has been managed. No additional complaints I discussed the case with Dr. Lynn, who was available but did not see the patient with me in the office today and explained the extent of the injury to the patient and options available which include surgical intervention. I explained the procedure in detail along with the length of recovery and rehab course. I explained the risk, benefits and alternatives.? Risks including, but not limited to;? infection, blood clots, bleeding, delayed healing. Local risks: wound healing problems (common in this area due to limited blood supply), nerve injury (especially sural nerve), persistent pain, stiffness, scar sensitivity. Tendon-specific risks: re-rupture, incomplete healing, over-lengthening of the tendon (leading to weakness). Hardware risks (if anchors/sutures used): irritation, reaction, possible need for later removal. Other: calf muscle weakness, prolonged rehabilitation requirements. Benefits including, restored continuity of the Achilles tendon, improved push- off strength, gait, and function compared to untreated rupture, reduced risk of long-term weakness of ankle power, may allow quicker return to sports/high demand activities.? Alternatives include, nonsurgical treatment such as functional bracing, casting in plantarflexion with gradual progression in which permanent weakness or loss of function may occur.? The patient had ample opportunity to ask questions. All questions were answered to the patient's satisfaction. The patient verbalized understanding and agreed to move forward with a right achilles tendon repair with Dr. Lynn. The patient demonstrates understanding of the risks, benefits and alternatives.? The patient was placed back into a posterior splint and instructed to not eat or drink after midnight. He will be re-evaluated for swelling in the preoperative area prior to surgery. Coding Level of Care Code Global (57066) Diagnoses Ankle fracture, right S82.891A Rupture of right Achilles tendon S86.011A CPT Codes Splint - CPT: 47805-Ydtvq Leg splint application ([id number])
--- OUTSIDE RECORDS SUMMARY | 2025-04-23 19:23 | XMS_ITS | Clinical Summary ---
Author Organization [facility] Address [address] [place] [phone] Phone Care Team Providers Care Fixed Interest Dealer Name Role Phone Pcp, Unknown Primary Care Provider Unavailabl e Allergies No known active allergies Medications No known medications Encounters Date Type Department Care Team Description 01/23/2025 9:40 AM EDT Ancillary Procedure [facility], [facility] [address] [place] [address] Florian Uriostegui PA-C 01/23/2025 8:45 AM EDT - 01/23/2025 10:23 AM EDT Emergency [facility] [address] [place] [address] Discharge Disposition: Home or Self Care from [...] (01/23/2025 9:10 AM EDT) COLOR Yellow Yellow [facility] CLARITY Clear [facility] GLUCOSE Negative Negative [facility] BILI Negative Negative [facility] KETONES Negative Negative [facility] SPECIFIC GRAVITY 1.025 1.005 - 1.030 [facility] BLOOD Negative Negative [facility] PH 6.0 5.0 - 8.0 [facility] Protein-UA Negative Negative [facility] NITRITE Negative Negative [facility] Leukocyte esterase, ur Negative Negative [facility] Urine (Urine) 01/23/2025 9:1 0 AM EDT 01/23/2025 9:32 AM EDT Bobby Kenney MD URINE ORDERABLES Final Res ult Performing Organization Address [facility] Co de Phone Number [address] [address] * LFTs (hepatic panel) (01/23/2025 8:58 AM EDT) ALKALINE PHOSPHATASE 71 39 - 117 U/L [facility] TOTAL BILIRUBIN 0.5 0.0 - 1.2 mg/dL [facility] DIRECT BILIRUBIN 0.1 0.0 - 0.2 mg/dL [facility] Bilirubin (Indirect) NOT CALCULATED 0 - 1.5 mg/dL [facility] AST 23 0 - 37 U/L [facility] ALT 18 0 - 40 U/L [facility] TOTAL PROTEIN 7.2 6.5 - 8.0 g/dL [facility] ALBUMIN 4.5 3.9 - 4.8 g/dL [facility] GLOBULIN 2.7 1 - 4.8 g/dL [facility] A/G Ratio 1.67 1.00 - 4.80 RATIO [facility] Blood 01/23/2025 8:58 AM EDT 01/23/2025 9:09 AM EDT Bobby Kenney MD LAB BLOOD ORDERABLES Final Result Performing Organization Address [facility] Co de Phone Number [address] [address] * CBC and differential (01/23/2025 8:58 AM EDT) WBC 5.05 4.00 - 11.00 K/uL [facility] RBC 5.30 4.50 - 5.90 M/uL [facility] HGB 15.6 13.5 - 17.5 g/dL [facility] HCT 46.3 41.0 - 53.0 % [facility] PLT 240 150 - 450 K/uL [facility] MCV 87.4 80.0 - 100.0 fL [facility] MCH 29.4 27.0 - 31.0 pg [facility] MCHC 33.7 32.0 - 36.0 g/dL [facility] RDW 12.7 11.5 - 14.5 % [facility] MPV 9.1 8.4 - 12.0 fL [facility] NRBC 0.00 0.00 /100 WBCs [facility] ABSOLUTE NRBC 0.00 0.00 K/uL [facility] DIFF METHOD Auto [facility] NEUTS 56.4 48.0 - 76.0 % [facility] LYMPHS 31.7 18.0 - 41.0 % [facility] MONOS 8.1 4.0 - 11.0 % [facility] EOS 2.8 0.0 - 5.0 % [facility] BASOS 0.6 0.0 - 1.5 % [facility] Granulocytes, immature (%) 0.4 0.0 - 0.9 % [facility] ABSOLUTE NEUTS 2.85 1.92 - 7.60 K/uL [facility] ABSOLUTE LYMPHS 1.60 0.72 - 4.10 K/uL [facility] ABSOLUTE MONOS 0.41 0.16 - 1.10 K/uL [facility] ABSOLUTE EOS 0.14 0.00 - 0.50 K/uL [facility] ABSOLUTE BASOS 0.03 0.00 - 0.15 K/uL [facility] Granulocytes, immature 0.02 0.00 - 0.09 K/uL [facility] Blood 01/23/2025 8:58 AM EDT 01/23/2025 9:09 AM EDT us Bobby Kenney MD LAB BLOOD ORDERABLES Final Result [facility] [address] [place] [address] * C-Reactive Protein (01/23/2025 8:58 AM EDT) C REACTIVE PROTEIN <3.0 0.0 - 4.0 mg/L [facility] 01/23/2025 8:58 AM EDT 01/23/2025 9:09 AM EDT us Bobby Kenney MD LAB BLOOD ORDERABLES Final Result Performing Organization Address City/[facility]/ZIP Co de Phone Number [address] [address] * Lipase (01/23/2025 8:58 AM EDT) LIPASE 16 16 - 63 U/L [facility] Blood 01/23/2025 8:58 AM EDT 01/23/2025 9:09 AM EDT Bobby Kenney MD LAB BLOOD ORDERABLES Final Result Performing Organization Address [facility] de Phone Number [address] [address] * (ABNORMAL) Basic metabolic panel (01/23/2025 8:58 AM EDT) SODIUM 139 133 - 146 mmol/L [facility] CHLORIDE 103 96 - 108 mmol/L [facility] POTASSIUM 4.5 3.3 - 5.1 mmol/L [facility] Comment:Specimen slightly he molyzed, result may be falsely elevated. CO2 25 21 - 35 mmol/L [facility] BUN 10 6 - 19 mg/dL [facility] CREATININE 1.00 0.5 - 1.5 mg/dL [facility] GLUCOSE 127(H) 70 - 99 mg/dL [facility] CALCIUM 9.5 8.4 - 10.3 mg/dL [facility] EGFR 101 >59 mL/min/1.7 3m2 [facility] Comment:Estimated glomerular filtration rate calculated using the CKD-EPI refit equation. ANION GAP 16 10 - 20 mmol/L [facility] Blood 01/23/2025 8:58 AM EDT 01/23/2025 9:09 AM EDT Bobby Kenney MD LAB BLOOD ORDERABLES Final Result [address] [address] from Last [address] [place], [place] [address] [place], [place] [id number] Care Teams Fixed Interest Dealer Relationship Specialty Start Date End Date Pcp, Unknown PCP - General 01/23/25 Additional Source Comments The information contained in this document represents components of the legal health record. It is not the complete legal health record.[facility]
--- OUTSIDE RECORDS SUMMARY | 2025-04-23 19:23 | XMS_ITS | Clinical Summary ---
Author Organization [facility] Address [address] [place] [address] Care Team Providers Care Agricultural And Forestry Supervisor Name Role Phone Keily Ocasio MD Primary [...] EDT - 04/07/2025 4:39 PM EDT Emergency [facility] Emergency Department [address] [place] [id number] Renny Sims MD Closed nondisplaced fracture of [...] ual Screening 07/04/2024 COVID-19 Vaccine (1 - 2024-2 6 season) 2025 Influenza Vaccine (#1) 2025 RSV Vaccine (60+ years old a nd patients) (1 - 1-dose 75+ series) 2065 Pneumococcal Vaccine: Pediat amor (0-5 Years) and At-Risk Patients (6-50 Years) Aged Out No longer eligible b ased on patient's age to complete this topic Procedures * Due to [place] state law, this organization might not be [...] Last 3 Months Results * Due to [place] state law, this organization might not be [...] to obtain the completed interpretation. Workstation ID: [id number] Up-to-date CT equipment and radiation dose reduction [...] of the calf tendons.. Resulting Agency Comment [id number] Procedure Note Khalif Bearden MD - 04/07/2025 [...] possible to obtain thecompleted interpretation. Workstation ID: [id number] Up-to-date CT equipment and radiation dose reduction [...] to obtain the completed interpretation. Workstation ID: [id number] Impressions 04/07/2025 1:44 PM EDT Acute nondisplaced intra-articular fracture of the medial malleolus. If this radiology report contains a blank impression section, it is an incomplete radiology report. Please contact the interpreting radiologist or applicable radiology division as soon as possible to obtain the completed interpretation. Workstation ID: [id number] Narrative 04/07/2025 1:44 PM EDT COMPARISON: None available. FINDINGS: There is an acute intra-articular fracture at the medial malleolus. The lateral and posterior malleoli appear intact. No dislocation. Joint spaces are preserved. There soft tissue swelling of the ankle. Resulting Agency Comment [id number] Procedure Note Khalif Bearden MD - 04/07/2025 [...] possible to obtain thecompleted interpretation. Workstation ID: [id number] us Renny Layer IMG XR PROCEDURES Edited [...] to obtain the completed interpretation. Workstation ID: [id number] Impressions 04/07/2025 1:44 PM EDT Acute nondisplaced intra-articular fracture of the medial malleolus. If this radiology report contains a blank impression section, it is an incomplete radiology report. Please contact the interpreting radiologist or applicable radiology division as soon as possible to obtain the completed interpretation. Workstation ID: [id number] Narrative 04/07/2025 1:44 PM EDT COMPARISON: None available. FINDINGS: There is an acute intra-articular fracture at the medial malleolus. The lateral and posterior malleoli appear intact. No dislocation. Joint spaces are preserved. There soft tissue swelling of the ankle. Resulting Agency Comment [id number] Procedure Note Khalif Bearden MD - 04/07/2025 [...] possible to obtain thecompleted interpretation. Workstation ID: [id number] us Renny Layer IMG XR PROCEDURES Edited [...] to obtain the completed interpretation. Workstation ID: [id number] Impressions 04/07/2025 1:44 PM EDT Acute nondisplaced intra-articular fracture of the medial malleolus. If this radiology report contains a blank impression section, it is an incomplete radiology report. Please contact the interpreting radiologist or applicable radiology division as soon as possible to obtain the completed interpretation. Workstation ID: [id number] Narrative 04/07/2025 1:44 PM EDT COMPARISON: None available. FINDINGS: There is an acute intra-articular fracture at the medial malleolus. The lateral and posterior malleoli appear intact. No dislocation. Joint spaces are preserved. There soft tissue swelling of the ankle. Resulting Agency Comment [id number] Procedure Note Khalif Bearden MD - 04/07/2025 [...] possible to obtain thecompleted interpretation. Workstation ID: [id number] us Renny Sims MD IMReny XR PROCEDURES [...] to obtain the completed interpretation. Workstation ID: [id number] Narrative 04/07/2025 1:40 PM EDT COMPARISON: None available. FINDINGS: There is no evidence of acute fracture or dislocation. Joint spaces are preserved. There is no abnormal soft tissue swelling identified. Resulting Agency Comment [id number] Procedure Note Khalif Bearden MD - 04/07/2025 [...] possible to obtain thecompleted interpretation. Workstation ID: [id number] Renny Sims MD IMG XR PROCEDURES Final Result from Last 3 Months Insurance [employer] Care Teams Agricultural And Forestry Supervisor Relationship Specialty Start Date End Date Keily Ocasio MD [address] [place] [address] PCP - General Internal Medicine 04/07/25
== END 2025-04-23 16:01 | disposition home or self-care (01) ==
LOC: HO.HOS 14:19
PROVIDERS: Visit Provider Physician Assistant
DX: S82.891A Other fracture of right lower leg, initial encounter for closed fracture (principal); S86.011A Strain of right Achilles tendon, initial encounter
CPT/HCPCS: 29515; 99024

== ENCOUNTER → 2025-04-23 14:18 | Outpatient (BNVA) | payer OTHER, SELFPAY | PROVIDERS: Visit Provider Physician Assistant | DX: S86.011A Strain of right Achilles tendon, initial encounter (principal); S82.891A Other fracture of right lower leg, initial encounter for closed fracture | CPT/HCPCS: 29515 ==

== ENCOUNTER 2025-04-24 08:54 | Day surgery (SDC) | payer OTHER, SELFPAY ==
--- OUTSIDE RECORDS SUMMARY | 2025-04-24 07:48 | XMS_ITS | Clinical Summary ---
Author Organization [facility] Address [address] [place] [address] Care Team Providers Care Manufacturing Technology Professor Name Role Phone Keily Ocasio MD Primary [...] EDT - 04/07/2025 4:39 PM EDT Emergency [facility] Emergency Department [address] [place] [id number] Renny Sims MD Closed nondisplaced fracture of [...] and Follow-Up 07/04/2024 Social Drivers of Health Dyesi ual Screening 07/04/2024 COVID-19 Vaccine (1 - 2024-2 6 season) 2025 Influenza Vaccine (#1) 2025 RSV Vaccine (60+ years old a nd patients) (1 - 1-dose 75+ series) 2065 Pneumococcal Vaccine: Pediat amor (0-5 Years) and At-Risk Patients (6-50 Years) Aged Out No longer eligible b ased on patient's age to complete this topic Procedures * Due to [place] state law, this organization might not be [...] Last 3 Months Results * Due to [place] state law, this organization might not be [...] to obtain the completed interpretation. Workstation ID: [id number] Up-to-date CT equipment and radiation dose reduction [...] of the calf tendons.. Resulting Agency Comment [id number] Procedure Note Khalif Bearden MD - 04/07/2025 [...] possible to obtain thecompleted interpretation. Workstation ID: [id number] Up-to-date CT equipment and radiation dose reduction [...] to obtain the completed interpretation. Workstation ID: [id number] Impressions 04/07/2025 1:44 PM EDT Acute nondisplaced intra-articular fracture of the medial malleolus. If this radiology report contains a blank impression section, it is an incomplete radiology report. Please contact the interpreting radiologist or applicable radiology division as soon as possible to obtain the completed interpretation. Workstation ID: [id number] Narrative 04/07/2025 1:44 PM EDT COMPARISON: None available. FINDINGS: There is an acute intra-articular fracture at the medial malleolus. The lateral and posterior malleoli appear intact. No dislocation. Joint spaces are preserved. There soft tissue swelling of the ankle. Resulting Agency Comment [id number] Procedure Note Khalif Bearden MD - 04/07/2025 [...] possible to obtain thecompleted interpretation. Workstation ID: [id number] us Renny Layer IMG XR PROCEDURES Edited [...] to obtain the completed interpretation. Workstation ID: [id number] Impressions 04/07/2025 1:44 PM EDT Acute nondisplaced intra-articular fracture of the medial malleolus. If this radiology report contains a blank impression section, it is an incomplete radiology report. Please contact the interpreting radiologist or applicable radiology division as soon as possible to obtain the completed interpretation. Workstation ID: [id number] Narrative 04/07/2025 1:44 PM EDT COMPARISON: None available. FINDINGS: There is an acute intra-articular fracture at the medial malleolus. The lateral and posterior malleoli appear intact. No dislocation. Joint spaces are preserved. There soft tissue swelling of the ankle. Resulting Agency Comment [id number] Procedure Note Khalif Bearden MD - 04/07/2025 [...] possible to obtain thecompleted interpretation. Workstation ID: [id number] us Renny Layer IMG XR PROCEDURES Edited [...] to obtain the completed interpretation. Workstation ID: [id number] Impressions 04/07/2025 1:44 PM EDT Acute nondisplaced intra-articular fracture of the medial malleolus. If this radiology report contains a blank impression section, it is an incomplete radiology report. Please contact the interpreting radiologist or applicable radiology division as soon as possible to obtain the completed interpretation. Workstation ID: [id number] Narrative 04/07/2025 1:44 PM EDT COMPARISON: None available. FINDINGS: There is an acute intra-articular fracture at the medial malleolus. The lateral and posterior malleoli appear intact. No dislocation. Joint spaces are preserved. There soft tissue swelling of the ankle. Resulting Agency Comment [id number] Procedure Note Khalif Bearden MD - 04/07/2025 [...] possible to obtain thecompleted interpretation. Workstation ID: [id number] us Renny Sims MD IMReny XR PROCEDURES [...] to obtain the completed interpretation. Workstation ID: [id number] Narrative 04/07/2025 1:40 PM EDT COMPARISON: None available. FINDINGS: There is no evidence of acute fracture or dislocation. Joint spaces are preserved. There is no abnormal soft tissue swelling identified. Resulting Agency Comment [id number] Procedure Note Khalif Bearden MD - 04/07/2025 [...] possible to obtain thecompleted interpretation. Workstation ID: [id number] Renny Sims MD IMG XR PROCEDURES Final Result from Last 3 Months Insurance [employer] Care Teams Manufacturing Technology Professor Relationship Specialty Start Date End Date Keily Ocasio MD [address] [place] [address] PCP - General Internal Medicine 04/07/25
--- OUTSIDE RECORDS SUMMARY | 2025-04-24 07:48 | XMS_ITS | Clinical Summary ---
Author Organization [facility] Address [address] [place] [address] Phone Care Team Providers Care Refrigeration Tech Name Role Phone Pcp, Unknown Primary Care Provider Unavailabl e Allergies No known active allergies Medications No known medications Encounters Date Type Department Care Team Description 01/23/2025 9:40 AM EDT Ancillary Procedure [facility], [facility] [address] [place] [address] Florian Uriostegui PA-C 01/23/2025 8:45 AM EDT - 01/23/2025 10:23 AM EDT Emergency [facility] [address] [place] [address] Discharge Disposition: Home or Self Care from [...] (01/23/2025 9:10 AM EDT) COLOR Yellow Yellow [facility] CLARITY Clear [facility] GLUCOSE Negative Negative [facility] BILI Negative Negative [facility] KETONES Negative Negative [facility] SPECIFIC GRAVITY 1.025 1.005 - 1.030 [facility] BLOOD Negative Negative [facility] PH 6.0 5.0 - 8.0 [facility] Protein-UA Negative Negative [facility] NITRITE Negative Negative [facility] Leukocyte esterase, ur Negative Negative [facility] Urine (Urine) 01/23/2025 9:1 0 AM EDT 01/23/2025 9:32 AM EDT Bobby Kenney MD URINE ORDERABLES Final Res ult Performing Organization Address [facility] Co de Phone Number [address] [address] * LFTs (hepatic panel) (01/23/2025 8:58 AM EDT) ALKALINE PHOSPHATASE 71 39 - 117 U/L [facility] TOTAL BILIRUBIN 0.5 0.0 - 1.2 mg/dL [facility] DIRECT BILIRUBIN 0.1 0.0 - 0.2 mg/dL [facility] Bilirubin (Indirect) NOT CALCULATED 0 - 1.5 mg/dL [facility] AST 23 0 - 37 U/L [facility] ALT 18 0 - 40 U/L [facility] TOTAL PROTEIN 7.2 6.5 - 8.0 g/dL [facility] ALBUMIN 4.5 3.9 - 4.8 g/dL [facility] GLOBULIN 2.7 1 - 4.8 g/dL [facility] A/G Ratio 1.67 1.00 - 4.80 RATIO [facility] Blood 01/23/2025 8:58 AM EDT 01/23/2025 9:09 AM EDT Bobby Kenney MD LAB BLOOD ORDERABLES Final Result Performing Organization Address [facility] Co de Phone Number [address] [address] * CBC and differential (01/23/2025 8:58 AM EDT) WBC 5.05 4.00 - 11.00 K/uL [facility] RBC 5.30 4.50 - 5.90 M/uL [facility] HGB 15.6 13.5 - 17.5 g/dL [facility] HCT 46.3 41.0 - 53.0 % [facility] PLT 240 150 - 450 K/uL [facility] MCV 87.4 80.0 - 100.0 fL [facility] MCH 29.4 27.0 - 31.0 pg [facility] MCHC 33.7 32.0 - 36.0 g/dL [facility] RDW 12.7 11.5 - 14.5 % [facility] MPV 9.1 8.4 - 12.0 fL [facility] NRBC 0.00 0.00 /100 WBCs [facility] ABSOLUTE NRBC 0.00 0.00 K/uL [facility] DIFF METHOD Auto [facility] NEUTS 56.4 48.0 - 76.0 % [facility] LYMPHS 31.7 18.0 - 41.0 % [facility] MONOS 8.1 4.0 - 11.0 % [facility] EOS 2.8 0.0 - 5.0 % [facility] BASOS 0.6 0.0 - 1.5 % [facility] Granulocytes, immature (%) 0.4 0.0 - 0.9 % [facility] ABSOLUTE NEUTS 2.85 1.92 - 7.60 K/uL [facility] ABSOLUTE LYMPHS 1.60 0.72 - 4.10 K/uL [facility] ABSOLUTE MONOS 0.41 0.16 - 1.10 K/uL [facility] ABSOLUTE EOS 0.14 0.00 - 0.50 K/uL [facility] ABSOLUTE BASOS 0.03 0.00 - 0.15 K/uL [facility] Granulocytes, immature 0.02 0.00 - 0.09 K/uL [facility] Blood 01/23/2025 8:58 AM EDT 01/23/2025 9:09 AM EDT us Bobby Kenney MD LAB BLOOD ORDERABLES Final Result [facility] [address] [place] [address] * C-Reactive Protein (01/23/2025 8:58 AM EDT) C REACTIVE PROTEIN <3.0 0.0 - 4.0 mg/L [facility] 01/23/2025 8:58 AM EDT 01/23/2025 9:09 AM EDT us Bobby Kenney MD LAB BLOOD ORDERABLES Final Result Performing Organization Address City/[facility]/ZIP Co de Phone Number [address] [address] * Lipase (01/23/2025 8:58 AM EDT) LIPASE 16 16 - 63 U/L [facility] Blood 01/23/2025 8:58 AM EDT 01/23/2025 9:09 AM EDT Bobby Kenney MD LAB BLOOD ORDERABLES Final Result Performing Organization Address [facility] de Phone Number [address] [address] * (ABNORMAL) Basic metabolic panel (01/23/2025 8:58 AM EDT) SODIUM 139 133 - 146 mmol/L [facility] CHLORIDE 103 96 - 108 mmol/L [facility] POTASSIUM 4.5 3.3 - 5.1 mmol/L [facility] Comment:Specimen slightly he molyzed, result may be falsely elevated. CO2 25 21 - 35 mmol/L [facility] BUN 10 6 - 19 mg/dL [facility] CREATININE 1.00 0.5 - 1.5 mg/dL [facility] GLUCOSE 127(H) 70 - 99 mg/dL [facility] CALCIUM 9.5 8.4 - 10.3 mg/dL [facility] EGFR 101 >59 mL/min/1.7 3m2 [facility] Comment:Estimated glomerular filtration rate calculated using the CKD-EPI refit equation. ANION GAP 16 10 - 20 mmol/L [facility] Blood 01/23/2025 8:58 AM EDT 01/23/2025 9:09 AM EDT Bobby Kenney MD LAB BLOOD ORDERABLES Final Result [address] [address] from Last [address] [place], [place] [address] [place], [place] [address]O Care Teams Refrigeration Tech Relationship Specialty Start Date End Date Pcp, Unknown PCP - General 01/23/25 Additional Source Comments The information contained in this document represents components of the legal health record. It is not the complete legal health record.[facility]
[2025-04-24 07:49] VITALS: BMI 21.1
[2025-04-24 08:57] VITALS: BP 145/101; PULSE 110; RESP 20; TEMP 36.4; O2SAT 97
[2025-04-24] MEDS: Lactated Ringers 1,000 ML 50 ML IVCONT (09:19)
--- NOTE | 2025-04-24 11:13 | MHC.SHP ---
Pre-Procedural Eval Section A - 24 Hr Update-Section A only Date of Service: 04/24/25 The patient is an INPATIENT: No Changes since office visit: No Cold of Flu in the past 2 weeks, No New Medical Problems, No Changes in Medication and No Patient answered all questions The patient has been examined within 24 hours of the surgical procedure. The History & Physical has been completed within 30 days and I have reviewed it.: Yes Section B - Complete if H&P > 30 days Chief Complaint: Strain of left Achilles tendon, initial encounter Allergies: Allergies Allergy/AdvReac Type Severity Reaction Status Date / Time No Known Allergies (No Known Allergy Verified 04/23/25 14:30 Allergies*) Plan I have reviewed the history and physical and performed a pertinent physical examination on my patient. No changes have occurred unless specified. Time Spent With Patient Time: Total time managing care of this patient today ____ minutes.
--- NOTE | 2025-04-24 13:17 | PM.OP ---
Brief Operative Note Date of Service: 04/24/25 Pre-op diagnosis: Right achilles rupture Post-op diagnosis: same Procedure: Right achilles repair Implants: Large Regeneten Bioinductive collagen patch, [employer] Surgeon: Fish Lynn MD Anesthesia: GETA and regional Was an Assessment Counselor used for this Procedure?: Yes Assessment Counselor: Adelina Flores Estimated blood loss (mL): 20 Tourniquet time (min): 60 IV fluids (mL): 1,000 Pathology: none sent Condition: stable Disposition: PACU
[2025-04-24 13:25] VITALS: BP 131/72; PULSE 90; RESP 12; TEMP 36.6; O2SAT 97
[2025-04-24 13:30] VITALS: BP 127/74; PULSE 70; RESP 12; O2SAT 100
[2025-04-24 13:35] VITALS: BP 111/59; PULSE 86; RESP 16; O2SAT 99
[2025-04-24 13:40] VITALS: BP 126/64; PULSE 63; RESP 16; O2SAT 97
[2025-04-24 13:55] VITALS: BP 124/73; PULSE 78; RESP 16; TEMP 36.1; O2SAT 96
--- NOTE | 2025-04-24 14:36 | PC.NURSE ---
PATIENT ALREADY HAS PAIN MEDICATION AT HOME.
--- NOTE | 2025-04-24 17:07 | PC.NURSE ---
Pharmacy in PACU, Percocet prescription was not picked up by patient. Discharge instructions checked and there is no mention of new prescription ? if was ordered from resident care manager which is not visible to nurses in [facility]. Patient called at home and he states that he still has pain medication left over from his last prescription that he can take overnight and someone will be in tomorrow to leaf size picker his prescription. Pharmacy notified.
--- NOTE | 2025-05-17 12:07 | P.OP_ITS ---
Operative Note Operative Note Date of Service: 04/24/25 Narrative: Date of Service: 04/24/25 Pre-op diagnosis: Right achilles rupture Post-op diagnosis: same Procedure: Right achilles repair Implants: Large Regeneten Bioinductive collagen patch, [employer] Surgeon: Fish Lynn MD Anesthesia: GETA and regional Was an Plugging Machine Operator used for this Procedure?: Yes Plugging Machine Operator: Adelina Flores Estimated blood loss (mL): 20 Tourniquet time (min): 60 IV fluids (mL): 1,000 Pathology: none sent Condition: stable Disposition: PACU Procedure in detail: Patient was brought to the operating room and placed prone on the surgical table. He was prepped and draped in standard sterile fashion and a time out was called to identify proper site, proper procedure and IV antibiotics per weight were administered. I began by making a 3-4 cm incision over the distal Achilles tendon. Once through skin was immediately obvious that he had a full-thickness tear of his Achilles tendon. Unfortunately given the soft tissue swelling it was sub acute injury. I opened up the incision proximally an additional 1 cm to fully visualize the distal tendon. There was retraction of the proximal tendon such that I released the paratenon and then with a Donna clamp was able to retrieve the torn retracted proximal tendons. I debrided a the necrotic tissue and then using a 2.0 FiberWire and a Krackow stitch in both the distal and proximal fragment re-approximated to tendon fragments with the foot and hyper plantar flexion. I had tendon on tendon repair but only with hyper plantarflexion, therefore I elected to place a large collagen bio inductive graft over the repair site. This was wrapped circumferentially and sutured in place with a 2-0 Vicryl. I irrigated copiously once I was satisfied with the repair and the graft placement. I was not able to repair the paratenon. I then closed with a absorbable suture and skin glue. Patient was placed in a Ian vacuum assisted dressing and a well-padded posterior splint was applied with the foot plantar flexed. Local anesthetic was injected around the incision site prior to dressing placement. Patient was then extubated brought to recovery room stable condition. There were no known complications.
== END 2025-04-24 14:40 | disposition home or self-care (01) ==
PROVIDERS: Visit Provider Orthopaedic Surgery
PROC: (CPT 27650; principal; 2025-04-24 11:00)
DX: S86.011A Strain of right Achilles tendon, initial encounter (principal); S82.891A Other fracture of right lower leg, initial encounter for closed fracture; M25.571 Pain in right ankle and joints of right foot; M79.661 Pain in right lower leg; R20.0 Anesthesia of skin; Z98.890 Other specified postprocedural states
CPT/HCPCS: 27650; C1763; J0131; J0665; J0690; J1100; J2003; J2250; J2405; J2704; J2795; J3010

== ENCOUNTER → 2025-04-24 08:54 | Outpatient (BNV) | payer OTHER, SELFPAY | PROVIDERS: Visit Provider Orthopaedic Surgery | DX: S86.011A Strain of right Achilles tendon, initial encounter (principal) | CPT/HCPCS: 27650 ==

== ENCOUNTER 2025-04-30 13:07 | Outpatient (AMB) | payer OTHER, SELFPAY ==
--- NOTE | 2025-04-30 13:12 | A.OFFVIS_ITS ---
Intake Visit Reasons: PO RT achilles tendon repair 04/24/25 NE Intake Note: Sasha is a 34 year old male who presents today presents today for a post op appointment states post right achilles tendon repair done on 04/24/[address] Lynn. Patient reports he is doing well. He is just wondering what the vacuum sealed bandage it supposed to do. Allergies No Known Allergies (No Known Allergies*) Allergy (Verified 04/30/25 13:27) HPI HPI PO RT achilles tendon repair 04/24/25 NE: Details: Mr. Solis this is a 34-year-old male who presents to the office today status post right talus ORIF performed on 04/17/[address] Lynn as well as a right Achilles tendon repair performed on 04/24/[address] Lynn. JODIE device is in place and functioning appropriately. Splint is clean dry and intact. He has been nonweightbearing as instructed. Pain is managed. No additional complaints. [facility] Medical History History of HPV infection Hx of strain of rotator cuff Surgical History Hx of shoulder surgery History of surgery Family History Other No significant family history Social History Are you a primary manager critical care to a significant other at home: No Do you presently have visiting nurse or other home services: No Alcohol intake: current Alcohol intake frequency: does not drink Comment: COUNTS CORRECT Patient Tobacco Use Status: Current everyday Tobacco user Tobacco use type: Smokeless Tobacco Cigarettes Per Day: 10 Years Smoked: 10 e-Cigarette/Vaping Use: Currently Using Second Hand Smoke Exposure: No Current occupational status: employed Current occupation: water dept/ rt hand Review of Systems Const All systems reviewed & are unremarkable except as noted in HPI and below Physical Exam Const General: cooperative, healthy appearing and no acute distress Resp Effort & Inspection: normal respiratory effort and able to speak in complete sentences Extrem Other: Right foot incision sites from the talus ORIF are clean dry and intact. Julito are intact. No surrounding erythema or drainage. No signs of infection. Achilles tendon repair incision site is clean dry and intact. No surrounding erythema or drainage. No signs of infection. No evidence of skin breakdown. Sensation is reportedly intact. Pedal pulse intact. Psych Appearance: grossly normal Mental Status: mental status grossly normal Attitude: cooperative Assessment & Plan Assessment & Plan (1) Rupture of right Achilles tendon: Code(s): S86.011A - Strain of right Achilles tendon, initial encounter Category: Medical (2) Ankle fracture, right: Code(s): S82.891A - Other fracture of right lower leg, initial encounter for closed fracture Category: Medical Plan Mr. Solis this is a 34-year-old male who presents to the office today status post right talus ORIF performed on 04/17/[address] Lynn as well as a right Achilles tendon repair performed on 04/24/[address] Lynn. JODIE device is in place and functioning appropriately. Splint is clean dry and intact. He has been nonweightbearing as instructed. Pain is managed. No additional complaints. While in the office today, the julito were removed from the incision sites on the medial and lateral aspect of the talus. The sutures located over the Achilles tendon repair we will remain in place for an additional week. I placed a new JODIE dressing over the Achilles tendon incision. Patient was placed back into a posterior splint and instructed to non weightbear. He will follow up in 1 week for a wound check with anticipation of suture removal, sooner if needed. Coding Level of Care Code Global (38838) Diagnoses Rupture of right Achilles tendon S86.011A Ankle fracture, right S82.891A
== END 2025-04-30 14:12 | disposition home or self-care (01) ==
LOC: HO.HOS 13:08
PROVIDERS: Visit Provider Physician Assistant
DX: S86.011A Strain of right Achilles tendon, initial encounter (principal); S82.891A Other fracture of right lower leg, initial encounter for closed fracture
CPT/HCPCS: 99024

== ENCOUNTER 2025-05-09 10:15 | Outpatient (AMB) | payer OTHER, SELFPAY ==
--- NOTE | 2025-05-09 10:32 | MHC.OFFVIS ---
Intake Visit Reasons: PO RT achilles tendon repair 04/24/25 NE Intake Note: Sasha is a 34 year old male who presents today presents today for a post op appointment states post right achilles tendon repair done on 04/24/[address] Lynn. At his last visit patient was placed back in a new splint and a new bandage. Patient reports he is doing well in pain. He notices that he is having tanner and knee pain, but he states that its been casuing him pain before surgery. Accompanied by: Mother Allergies No Known Allergies (No Known Allergies*) Allergy (Verified 05/09/25 10:34) HPI HPI PO RT achilles tendon repair 04/24/25 NE: Details: Mr. Solis this is a 34-year-old male who presents to the office today status post right talus ORIF performed on 04/17/[address] Lynn as well as a right Achilles tendon repair performed on 04/24/[address] Lynn. JODIE device is in place and functioning appropriately. Splint is clean dry and intact. He has been nonweightbearing as instructed. Pain is managed. No additional complaints. ON LICENSE OF [facility] Medical History History of HPV infection Hx of strain of rotator cuff Surgical History Hx of shoulder surgery History of surgery Family History Other No significant family history Social History Are you a primary resident care manager rn to a significant other at home: No Do you presently have visiting nurse or other home services: No Alcohol intake: current Alcohol intake frequency: does not drink Comment: COUNTS CORRECT Patient Tobacco Use Status: Current everyday Tobacco user Tobacco use type: Smokeless Tobacco Cigarettes Per Day: 10 Years Smoked: 10 e-Cigarette/Vaping Use: Currently Using Second Hand Smoke Exposure: No Current occupational status: employed Current occupation: water dept/ rt hand Review of Systems Const All systems reviewed & are unremarkable except as noted in HPI and below Physical Exam Const General: cooperative, healthy appearing and no acute distress Resp Effort & Inspection: normal respiratory effort and able to speak in complete sentences Extrem Other: Right foot incision sites from the talus ORIF are clean dry and intact. Edmonds are intact. No surrounding erythema or drainage. No signs of infection. Achilles tendon repair incision site is clean dry and intact. Sutures intact. No surrounding erythema or drainage. No signs of infection. No evidence of skin breakdown. Sensation is reportedly intact. Pedal pulse intact. Psych Appearance: grossly normal Mental Status: mental status grossly normal Attitude: cooperative Office Procedures Casting/Splints [id number] Leg Cast Application Procedure code (CPT) selection complete Assessment & Plan Assessment & Plan (1) Rupture of right Achilles tendon: Code(s): S86.011A - Strain of right Achilles tendon, initial encounter Category: Medical (2) Ankle fracture, right: Code(s): S82.891A - Other fracture of right lower leg, initial encounter for closed fracture Category: Medical Plan Mr. Solis this is a 34-year-old male who presents to the office today status post right talus ORIF performed on 04/17/[address] Lynn as well as a right Achilles tendon repair performed on 04/24/[address] Lynn. JODIE device is in place and functioning appropriately. Splint is clean dry and intact. He has been nonweightbearing as instructed. Pain is managed. No additional complaints. While in the office today Dr. Lynn was available to see the patient with me in the office, sutures are removed and Steri-Strips were applied. The jodie device has been discontinued at this time. Patient was placed into a short-leg cast in neutral position to stabilize the talus fracture ORIF but also allow for decrease in tension of the Achilles tendon repair. He will continue to non weightbear. He will follow up in 4 weeks with cast off and repeat x-rays, sooner if needed. Coding Level of Care Code Global (74597) Diagnoses Rupture of right Achilles tendon S86.011A Ankle fracture, right S82.891A CPT Codes Casting - CPT: 25661-Ctway Leg Cast Application ([id number])
--- OUTSIDE RECORDS SUMMARY | 2025-05-09 11:58 | XMS_ITS | Clinical Summary ---
Author Organization [facility] Address [address] [place] [address] Care Team Providers Care Concrete Building Assembler Name Role Phone Keily Ocasio MD Primary [...] EDT - 04/07/2025 4:39 PM EDT Emergency [facility] Emergency Department [address] [place] [id number] Renny Sims MD Closed nondisplaced fracture of [...] 6 season) 2025 Influenza Vaccine (#1) 2025 Pneumococcal Vaccine: Pediat amor (0-5 Years) and At-Risk Patients (6-50 Years) Aged Out No longer eligible b ased on patient's age to complete this topic Procedures * Due to [place] Arrayit law, this organization might not be sharing [...] Last 3 Months Results * Due to [place] state law, this organization might not be [...] to obtain the completed interpretation. Workstation ID: [id number] Up-to-date CT equipment and radiation dose reduction [...] of the calf tendons.. Resulting Agency Comment [id number] Procedure Note Khalif Bearden MD - 04/07/2025 [...] possible to obtain thecompleted interpretation. Workstation ID: [id number] Up-to-date CT equipment and radiation dose reduction [...] to obtain the completed interpretation. Workstation ID: [id number] Impressions 04/07/2025 1:44 PM EDT Acute nondisplaced intra-articular fracture of the medial malleolus. If this radiology report contains a blank impression section, it is an incomplete radiology report. Please contact the interpreting radiologist or applicable radiology division as soon as possible to obtain the completed interpretation. Workstation ID: [id number] Narrative 04/07/2025 1:44 PM EDT COMPARISON: None available. FINDINGS: There is an acute intra-articular fracture at the medial malleolus. The lateral and posterior malleoli appear intact. No dislocation. Joint spaces are preserved. There soft tissue swelling of the ankle. Resulting Agency Comment [id number] Procedure Note Khalif Bearden MD - 04/07/2025 [...] possible to obtain thecompleted interpretation. Workstation ID: [id number] us Renny Layer IMG XR PROCEDURES Edited [...] to obtain the completed interpretation. Workstation ID: [id number] Impressions 04/07/2025 1:44 PM EDT Acute nondisplaced intra-articular fracture of the medial malleolus. If this radiology report contains a blank impression section, it is an incomplete radiology report. Please contact the interpreting radiologist or applicable radiology division as soon as possible to obtain the completed interpretation. Workstation ID: [id number] Narrative 04/07/2025 1:44 PM EDT COMPARISON: None available. FINDINGS: There is an acute intra-articular fracture at the medial malleolus. The lateral and posterior malleoli appear intact. No dislocation. Joint spaces are preserved. There soft tissue swelling of the ankle. Resulting Agency Comment [id number] Procedure Note Khalif Bearden MD - 04/07/2025 [...] possible to obtain thecompleted interpretation. Workstation ID: [id number] us Renny Sims MD IMG XR PROCEDURES Edited Result - [...] to obtain the completed interpretation. Workstation ID: [id number] Impressions 04/07/2025 1:44 PM EDT Acute nondisplaced intra-articular fracture of the medial malleolus. If this radiology report contains a blank impression section, it is an incomplete radiology report. Please contact the interpreting radiologist or applicable radiology division as soon as possible to obtain the completed interpretation. Workstation ID: [id number] Narrative 04/07/2025 1:44 PM EDT COMPARISON: None available. FINDINGS: There is an acute intra-articular fracture at the medial malleolus. The lateral and posterior malleoli appear intact. No dislocation. Joint spaces are preserved. There soft tissue swelling of the ankle. Resulting Agency Comment [id number] Procedure Note Khalif Bearden MD - 04/07/2025 [...] possible to obtain thecompleted interpretation. Workstation ID: [id number] us Renny Sims MD IMG XR PROCEDURES Edited Result - [...] to obtain the completed interpretation. Workstation ID: [id number] Narrative 04/07/2025 1:40 PM EDT COMPARISON: None available. FINDINGS: There is no evidence of acute fracture or dislocation. Joint spaces are preserved. There is no abnormal soft tissue swelling identified. Resulting Agency Comment [id number] Procedure Note Khalif Bearden MD - 04/07/2025 [...] possible to obtain thecompleted interpretation. Workstation ID: [id number] us Renny Sims MD IMG XR PROCEDURES Final Result from Last 3 Months Insurance [employer] Care Teams Concrete Building Assembler Relationship Specialty Start Date End Date Keily Ocasio MD [address] [place] [address] PCP - General Internal Medicine 04/07/25
--- OUTSIDE RECORDS SUMMARY | 2025-05-09 11:58 | XMS_ITS | Clinical Summary ---
Author Organization [facility] Address [address] [address] Phone Care Team Providers Care Compensation And Benefits Manager Name Role Phone Pcp, Unknown Primary Care Provider Unavailabl e Allergies No known active allergies Medications No known medications Social History Tobacco Use Types Packs/Day Years [...] this topic Medical Devices Not on file Insurance [address] [place], [place] [address]O [facility] Care Teams Compensation And Benefits Manager Relationship Specialty Start Date End Date Pcp, Unknown PCP - General 01/23/25 Additional Source Comments The information contained in this document represents components of the legal health record. It is not the complete legal health record.[facility]
== END 2025-05-09 11:48 | disposition home or self-care (01) ==
LOC: HO.HOS 10:16
PROVIDERS: Visit Provider Physician Assistant
DX: S86.011A Strain of right Achilles tendon, initial encounter (principal); S82.891A Other fracture of right lower leg, initial encounter for closed fracture
CPT/HCPCS: 29405; 99024

== ENCOUNTER → 2025-05-09 10:15 | Outpatient (BNVA) | payer OTHER, SELFPAY | PROVIDERS: Visit Provider Physician Assistant | DX: S82.891D Other fracture of right lower leg, subsequent encounter for closed fracture with routine healing (principal); S86.011D Strain of right Achilles tendon, subsequent encounter | CPT/HCPCS: 29405 ==

== ENCOUNTER 2025-06-06 10:44 | Outpatient (AMB) | payer OTHER, SELFPAY ==
--- NOTE | 2025-06-06 10:59 | A.OFFVIS_ITS ---
Vital Signs 06/06/25 11:07 Height 6 ft 2 in Weight 160 lb BMI 20.5 Intake Visit Reasons: PO RT achilles tendon repair 04/24/25 NE Intake Note: Sasha is a 34 year old male who presents today presents today for a post op appointment states post right achilles tendon repair done on 04/24/[address] Lynn. At his last visit he was placed in a short leg cast. Patient reports still having a lot of pain at night. Patient is also having twitching and swelling. Allergies No Known Allergies (No Known Allergies*) Allergy (Verified 06/06/25 11:08) HPI HPI PO RT achilles tendon repair 04/24/25 NE: Details: Mr. Solis is a 34-year-old male who presents to the office today status post right talus and medial malleolar ORIF performed on 04/17/2025 as well as an Achilles tendon repair that was performed on 04/24/[address] Lynn. Patient has been casted since his last appointment on 05/09/2025 and has remained nonweightbearing. Cast was removed in the office today for repeat x-rays to be obtained. Patient reports pain is well managed. He has been compliant with nonweightbearing. No additional complaints. [facility] Medical History History of HPV infection Hx of strain of rotator cuff Surgical History Hx of shoulder surgery History of surgery Family History Other No significant family history Social History Are you a primary home care nurse to a significant other at home: No Do you presently have visiting nurse or other home services: No Alcohol intake: current Alcohol intake frequency: does not drink Comment: COUNTS CORRECT Patient Tobacco Use Status: Current everyday Tobacco user Tobacco use type: Smokeless Tobacco Cigarettes Per Day: 10 Years Smoked: 10 e-Cigarette/Vaping Use: Currently Using Second Hand Smoke Exposure: No Current occupational status: employed Current occupation: water dept/ rt hand Review of Systems Const All systems reviewed & are unremarkable except as noted in HPI and below Physical Exam Vital Signs: BMI result Body Mass Index 20.5 Const General: cooperative, healthy appearing and no acute distress Resp Effort & Inspection: normal respiratory effort and able to speak in complete sentences Extrem Other: Right foot incision sites from the talus ORIF are clean dry and intact. No surrounding erythema or drainage. No signs of infection. Achilles tendon repair incision site is clean dry and intact. No surrounding erythema or drainage. No signs of infection. No evidence of skin breakdown. Sensation is reportedly intact. Pedal pulse intact. Psych Appearance: grossly normal Mental Status: mental status grossly normal Attitude: cooperative Assessment & Plan Assessment & Plan (1) Rupture of right Achilles tendon: Code(s): S86.011A - Strain of right Achilles tendon, initial encounter Category: Medical (2) Ankle fracture, right: Code(s): S82.891A - Other fracture of right lower leg, initial encounter for closed fracture Category: Medical Plan Mr. Solis is a 34-year-old male who presents to the office today status post right talus and medial malleolar ORIF performed on 04/17/2025 as well as an Achilles tendon repair that was performed on 04/24/[address] Lynn. Patient has been casted since his last appointment on 05/09/2025 and has remained nonweightbearing. Cast was removed in the office today for repeat x-rays to be obtained. Patient reports pain is well managed. He has been compliant with nonweightbearing. No additional complaints. While in the office today Dr. Lynn was available for consult but did not see the patient with me and a collaborative treatment plan was created. The patient will remain nonweightbearing on the right lower extremity x3 months. He was placed into a boot with an Achilles wedge. A physical therapy prescription has been placed at this time to work on gentle range of motion. An out of work note was provided to the patient. He will follow-up in 6 weeks with me, while Dr. Lynn is in the office, sooner if needed. X-rays of the right foot and ankle which were obtained while in the office today and were reviewed by me, Adelina Flores PA-C, revealed intact orthopedic hardware with routine healing. Orders: Orders XR ankle RT min 3V Today M25.579 - Pain in unspecified ankle and joints of unspecified foot XR foot RT min 3V Today M79.673 - Pain in unspecified foot Coding Level of Care Code Global (42985) Diagnoses Rupture of right Achilles tendon S86.011A Ankle fracture, right S82.891A
[2025-06-06 11:07] VITALS: BMI 20.5
== END 2025-06-06 12:04 | disposition home or self-care (01) ==
LOC: HO.HOS 10:45
PROVIDERS: Visit Provider Physician Assistant
DX: S86.011A Strain of right Achilles tendon, initial encounter (principal); S82.891A Other fracture of right lower leg, initial encounter for closed fracture
CPT/HCPCS: 99024

== ENCOUNTER 2025-06-06 11:24 | Outpatient (REF) | payer OTHER, SELFPAY ==
--- NOTE | ~2025-06-06 | XR_ITS ---
EXAMINATION: XR FOOT, RIGHT CLINICAL INFORMATION: M79.673 - Pain in unspecified foot COMPARISON: X-ray 07/14/2023 TECHNIQUE: 3 views of the right foot. FINDINGS: Bone mineralization is decreased, limiting sensitivity. Alignment is anatomic. No visible acute fracture, dislocation or suspicious bony lesion. Mild arthritis in the midfoot, and including mild first tarsometatarsal joint arthritis. Postoperative changes with orthopedic hardware in the ankle, projected over the distal tibia and the talus. No abnormal soft tissue calcification. No radiopaque foreign body. XR/XR foot RT min 3V IMPRESSION: No visible acute osseous findings. Decreased bone mineralization limiting evaluation. Mild arthritis. Electronically signed by: Gen Mcdaniel MD 06/06/2025 03:36 PM EST
--- NOTE | ~2025-06-06 | XR_ITS ---
EXAMINATION: XR ANKLE, RIGHT CLINICAL INFORMATION: M25.579 - Pain in unspecified ankle and joints of unspecified foot COMPARISON: April 11, 2025. TECHNIQUE: AP, lateral, and mortise views of the right ankle. FINDINGS: 2 metallic screws placed through the medial and lower lobes and in at the mid segment of the distal metaphysis of the tibia. There are 2 intact screws placed through the talus into the talus dome. Regional osteoporosis, distal metaphysis and epiphysis of the tibia and fibula and the talus bone. Bone fragments without confirmation. XR/XR ankle RT min 3V IMPRESSION: Status post open reduction internal fixation comminuted fractures medial multilevel loss and talus dome with normal regional osteoporosis and no gross healing/callus formation. Superimposed inflammatory or infectious processes cannot be excluded. Electronically signed by: John Williamson MD 06/06/2025 11:47 AM [facility] HAGEN
== END 2025-06-06 11:25 | disposition home or self-care (01) ==
LOC: HO.HOSX 11:24
PROVIDERS: Visit Provider Physician Assistant
DX: S86.011A Strain of right Achilles tendon, initial encounter (principal); S82.891A Other fracture of right lower leg, initial encounter for closed fracture
CPT/HCPCS: 73610; 73630

== ENCOUNTER → 2025-06-06 11:27 | Outpatient (BNV) | payer OTHER, SELFPAY | PROVIDERS: Visit Provider Radiology Diagnostic Radiology | DX: S82.891D Other fracture of right lower leg, subsequent encounter for closed fracture with routine healing (principal); M19.071 Primary osteoarthritis, right ankle and foot | CPT/HCPCS: 73610; 73630 ==